=== PATIENT | female | born 1945 | race Caucasian/White ===

== ENCOUNTER 2017-04-28 12:45 | Inpatient (IN) | payer MEDICARE ==
--- NOTE | 2017-04-28 14:21 | RAD ---
HISTORY: Fever COMPARISONS: November 18, 2016 VIEWS: 1: frontal portable view of the chest at 2:05 PM FINDINGS: LINES AND TUBES: None. CARDIOMEDIASTINAL SILHOUETTE: The cardiac silhouette is enlarged. The cardiomediastinal silhouette is otherwise normal for portable technique. PLEURA: The costophrenic angles are sharp. No pleural abnormalities are noted. LUNG PARENCHYMA: The lungs are clear. ABDOMEN: The upper abdomen is clear. There is no subphrenic gas. BONES AND SOFT TISSUES: No bone or soft tissue abnormalities are noted. IMPRESSION: CARDIOMEGALY. NO ACTIVE CARDIOPULMONARY DISEASE.
[2017-04-28 14:24] LABS: Urine Bilirubin Negative (Negative); Urine Glucose Negative (Negative); Urine Nitrite Negative (Negative)
[2017-04-28] MEDS ORDERED: Ibuprofen TAB* 600 MG PO ONE (15:20)
[2017-04-28 15:21] LABS: Hematocrit 42 % (35-47); Mean Corpuscular HGB Conc 33 g/dl (31-36); Mean Corpuscular Hemoglobin 30 pg (27-31); Mean Corpuscular Volume 91 fL (80-97); Mean Platelet Volume 10 um3 (7.4-10.4); Red Blood Count 4.62 10^6/ul (4.0-5.4); Red Cell Distribution Width 13 % (10.5-15); White Blood Count 24.8 10^3/ul (3.5-10.8)
[2017-04-28 15:22] LABS: Comments Flag Yes
[2017-04-28 15:36] LABS: Albumin 4.1 g/dL (3.2-5.2); BUN/Creatinine Ratio 12.1 (8-20); Calcium 9.4 mg/dL (8.6-10.3); EGFR African American 112.9 (>60); EGFR Non-African American 87.8 (>60); Globulin 3.5 g/dL (2-4); Potassium 3.6 mmol/L (3.5-5.0); Total Bilirubin 1.4 mg/dL (0.2-1.0); Total Protein 7.6 g/dL (6.4-8.9)
[2017-04-28] MEDS ORDERED: metroNIDAZOLE IV 500 MG/100ML* 500 MG/100 ML BAG IVPB ONE (15:43)
[2017-04-28] MEDS ORDERED: Ciprofloxacin 400MG IVPREMIX(* 400 MG/200 ML BAG IVPB ONE (15:43)
[2017-04-28] MEDS ORDERED: Vancomycin(*) 1,500 MG in NS 0.9% 250 ML* 250 ML IVPB ONE (15:43)
[2017-04-28] MEDS ORDERED: Ondansetron INJ* 2 MG/ML VIAL IV ONE (15:44)
[2017-04-28] MEDS: NS 0.9% 1000 ML* 3,000 ML IV ONE ×2 (16:03→17:14)
[2017-04-28] MEDS ORDERED: Iodixanol* (CONTRAST) 320 MG/ML 100 ML SDV IV ONE (16:09)
[2017-04-28] MEDS ORDERED: HYDROcodone/ACETAMIN 5-325 MG* 1 TAB PO ONE (16:21)
[2017-04-28] MEDS ORDERED: LORazepam INJ* 2 MG/ML 1 ML VIAL IV PUSH ONE (17:18)
[2017-04-28] MEDS ORDERED: Albuterol HFA INHALER* 8 gm MDI INH PRN (18:26)
[2017-04-28] MEDS ORDERED: Dextrose 50% Syringe 50 ML* 25 GM/50 ML SYRINGE IV PUSH PRN (18:27)
[2017-04-28] MEDS ORDERED: NS 0.9% 1000 ML* 1,000 ML IV SCH (18:45)
--- NOTE | 2017-04-28 19:32 | RAD ---
HISTORY: Right leg erythema TECHNIQUE: Multiple transverse and longitudinal ultrasound images were obtained of the veins of the right lower extremity using grayscale, color Doppler, and spectral Doppler imaging with and without compression and with augmentation. FINDINGS: VEINS: The common femoral vein, deep femoral vein, femoral vein and popliteal vein are compressible throughout their course, with normal flow on color Doppler imaging and normal response to augmentation on spectral Doppler imaging. SOFT TISSUES: Grossly normal. No large popliteal fossa cyst was identified. IMPRESSION: No sonographic evidence of deep vein thrombosis.
--- NOTE | 2017-04-28 19:32 | RAD ---
INDICATION: Hypoxemia, cough, sepsis, fever. COMPARISON: None. TECHNIQUE: Multidetector CT angiography images of the chest, abdomen and pelvis were obtained from the lung apices to the ischial tuberosities following the injection of 98 mL of Visipaque 320 intravenous contrast. The patient received oral contrast as well prior to imaging. The examination, both the CTA chest PE protocol and contrast enhanced CT of the abdomen and pelvis are limited by respiratory motion artifact. ANGIOGRAPHIC FINDINGS: Respiratory motion artifact limits evaluation of the pulmonary arteries beyond the proximal lobar branches. There are questionable nonocclusive filling defects in the lower segmental branches at the bilateral lower lobes (axial image 57 and axial image 58 of 96). There is mild calcified atherosclerosis of the coronary arteries, arch of the aorta and thoracic aorta. Calcified atherosclerosis extends into the infrarenal abdominal aorta and the common iliac arteries. There is exuberant eccentric calcification along the anterior margin of the abdominal aorta extending into the origin of the celiac trunk. The lesser extent there is calcified atherosclerosis in the proximal most portions of the superior mesenteric artery and bilateral renal arteries. The timing of the contrast bolus is inadequate to determine the luminal patency of the previously described arteries. NON-ANGIOGRAPHIC FINDINGS: CHEST: The lungs exhibit mild diffuse groundglass opacification. There is no definite focal or lobar consolidation. There is no large pleural effusion. There is no mediastinal or hilar lymphadenopathy. The heart and major vascular structures are grossly normal in appearance. ABDOMEN \T\ PELVIS: The liver, spleen, pancreas and adrenal glands are grossly normal in appearance. The gallbladder is normal. The kidneys are normal in appearance without focal mass, calcification or signs of hydronephrosis. The oral contrast has progressed as far as the rectosigmoid colon. The small and large bowel are not distended. The partially contrast-filled appendix is noted in the right lower quadrant (image 56 of 90). Air-fluid levels are noted in the otherwise normal-appearing transverse colon. There is no gross retroperitoneal or mesenteric lymphadenopathy. At the left of midline pelvis there is an asymmetric soft tissue density that measures approximately 6.3 x 5 cm in the axial plane. There is questionable identification of the uterus. Degenerative changes of the thoracic and lumbar spine include loss of intervertebral disc height, marginal osteophyte formation and vacuum disc phenomenon at L5/S1. A right hip ORIF device appears to be appropriately position.There are no sinister bone lesions. IMPRESSION: 1. This is a highly limited pulmonary embolism examination due to respiratory motion artifact. There appears to be nonobstructing thrombus in the bilateral lower lobe segmental arterial branches. 2. Mild diffuse groundglass opacification of the lungs could be seen in the setting of congestive heart failure. 3. There is no definite focal inflammatory change of the gastrointestinal tract but air-fluid levels are noted in the transverse colon which could be seen in the setting of diarrheal disease. #4 at the left of midline pelvis there is a 5 x 6 cm low-attenuation mass potentially originating at the left ovary, left adnexa or potentially the left uterus. Further characterization can be made with nonemergent pelvic ultrasound. 4. There are additional chronic, degenerative and iatrogenic findings described in the body the report that are unlikely to be directly related to the patient's current presentation..
[2017-04-28] MEDS ORDERED: Vancomycin per Pharmacy* NOTE FOLLOW UP PRN (19:54)
[2017-04-28] MEDS: Insulin LISPRO* 1 UNITS UNIT SUBCUT SCH (19:55)
[2017-04-28] MEDS ORDERED: Enoxaparin(*) 40 MG/0.4 ML SYR SUBCUT SCH (20:00)
[2017-04-28] MEDS: Donepezil TAB* 5 MG PO SCH (20:45)
[2017-04-28] MEDS: Acetaminophen TAB* 325 MG PO SCH (20:45)
[2017-04-28] MEDS: Enoxaparin(*) 100 MG/ML SYR SUBCUT SCH (20:46)
--- NOTE | 2017-04-28 22:25 | HP ---
CC: Dr. Keating * HISTORY AND PHYSICAL: DATE OF ADMISSION: 04/28/17 PRIMARY CARE PHYSICIAN: Dr. Keating. CHIEF COMPLAINT: Fever, worsening confusion. HISTORY OF PRESENT ILLNESS: Ms. Mcnair is a 71-year-old female with past medical history of hypertension, CAD, status post stenting x2, advanced dementia , diabetes, and osteoporosis who presents to the hospital from [facility] after she was found to have fever, nausea, vomiting, and altered mental status this morning. History obtained mostly from the patient's daughter and from documentation from [facility]. Apparently, the patient had been in the usual state of health lately although has had progressive dementia over the past few years. This morning, was noted to have nausea, vomiting, followed by dry heaves. The patient was found to have fever around 100, was also seemed to be more confused than usual. She always has memory problems from her dementia; however this morning, she had difficulty following commands, which is worse than her baseline. The patient received some antipyretics and a few hours later , her fever had increased. At this time, Dr. Keating, her PCP, was notified and she was sent to the hospital for further evaluation. In the emergency department, the patient was found to have a significant leukocytosis as well as a fever initially of 103.6. There is suspicion of possible underlying infection and the patient was placed on broad-spectrum antibiotics and hospitalist service was consulted to evaluate the patient for admission. PAST MEDICAL HISTORY: Hypertension, CAD, status post stenting x2, dementia, diabetes, osteoporosis. PAST SURGICAL HISTORY: PCI x2 to the LAD and left circumflex, lumbar surgery in 2009, right hip sukhjinder placement after a fracture in 2011. ALLERGIES: The patient has allergy to PENICILLIN, which causes a rash. FAMILY HISTORY: Significant for her father with lung cancer, mother at 72 of unknown causes. SOCIAL HISTORY: The patient is a former [id number] smoker. No recent alcohol use. No illicit drug use. REVIEW OF SYSTEMS: Unable to obtain. PHYSICAL EXAMINATION GENERAL: The patient is an elderly female, lying in bed, in no apparent distress. VITAL SIGNS: On admission, temperature of 103.6, heart rate of 75, respiratory rate of 17, O2 saturation 95% on room air; however, subsequently became hypoxic requiring supplemental oxygen, blood pressure of 124/44. HEENT: Head: Normocephalic, atraumatic. Eyes: Pupils equal, round, and reactive to light and accommodation. Anicteric sclerae. ENT: Moist mucous membranes. NECK: No cervical adenopathy. LUNGS: With some mild bibasilar rales, otherwise clear to auscultation bilaterally. No wheezes or rhonchi. CARDIOVASCULAR: Regular rate and rhythm. S1 and S2 present. No murmurs, gallops, or rubs. ABDOMEN: Soft, nondistended, obese. The patient reports some tenderness to palpation in the right lower quadrant. No rebound or guarding. Bowel sounds are positive. EXTREMITIES: No cyanosis, clubbing, or edema. SKIN: Right lower extremity is warm, not erythematous, was not tender on my evaluation; however, apparently for Dr. Nuñez, she had some tenderness that was evoked with palpation. NEUROLOGIC: The patient is alert, oriented to self only. No focal neurological deficits. LABORATORY DATA AND DIAGNOSTICS: White blood cell count is 24.8, hemoglobin of 14, hematocrit of 42, platelets of 236, left shift of 88.6% neutrophils. INR of 0.94. Sodium of 135, potassium of 3.6, chloride of 98, carbon dioxide of 26, BUN of 8, creatinine of 0.6, glucose of 161, lactic acid of 3.3. Total bilirubin of 1.4. Remainder of LFTs within normal limits. UA negative. Chest x -ray, personally reviewed, shows cardiomegaly, but no focal consolidations. CTA chest, abdomen, and pelvis has been done and is pending a read. The patient also has lower extremity Dopplers ordered. ASSESSMENT AND PLAN: Systemic inflammatory response syndrome criteria with unclear etiology of infection at this time in a 71-year-old female with a past medical history of hypertension, coronary artery disease, dementia, diabetes, and osteoporosis. 1. Systemic inflammatory response syndrome. The patient has a significant leukocytosis of 24.8 along with an elevated lactic acid of 3.3. She has been adequately fluid resuscitated in the emergency department and repeat lactic acid is pending. She has received broad-spectrum antibiotics in the emergency department, which I will continue for now. Cellulitis is possible as RLE was warm but do not appreciate any erythema. I am awaiting a read of her CT chest, abdomen, and pelvis. We will order a flu swab, she could potentially have a viral infection as the cause for these spiking fevers. Fevers alone could be driving her altered mental status as well. As noted above, UA is negative. She has blood cultures pending at this time. Chest x-ray is fairly unremarkable. CTA will evaluate for possible pulmonary embolism and lower extremity Dopplers look for deep venous thrombosis. 2. Hypertension. The patient's blood pressure seems stable to elevated. We will continue her home amlodipine and Bystolic. We will hold her losartan, hydrochlorothiazide for now. 3. Diabetes. Hold her home glipizide. We will write for Humalog insulin sliding scale and POC glucose a.c. and h.s. 4. Dementia. Continue donepezil and Namenda. Hold her gabapentin for the time being. The patient will need close monitoring overnight as I suspect she may have some worsening delirium. 5. Coronary artery disease. Continue home aspirin. The patient is not on a statin at this time. Continue beta-gemma. 6. DVT prophylaxis. Lovenox subcutaneous. 7. Code status. The patient is a DNR. This is confirmed with the patient's daughter. TIME SPENT: Total time spent on this admission was 45 minutes with over half the time spent [id number] with the patient in counseling and coordinating care. [id number]/[facility] #: [id number] MELISSA
[2017-04-29] MEDS: metroNIDAZOLE IV 500 MG/100ML* 500 MG/100 ML BAG IVPB SCH ×2 (00:47→10:35)
[2017-04-29] MEDS: Vancomycin(*) 1,000 MG in NS 0.9% 250 ML* 250 ML IVPB SCH ×2 (04:10→12:20)
[2017-04-29] MEDS ORDERED: Ciprofloxacin 400MG IVPREMIX(* 400 MG/200 ML BAG IVPB SCH (06:00)
[2017-04-29 06:07] LABS: Hematocrit 37 % (35-47); Hemoglobin 12.2 g/dl (12.0-16.0); Mean Corpuscular HGB Conc 33 g/dl (31-36); Mean Corpuscular Hemoglobin 30 pg (27-31); Mean Corpuscular Volume 91 fL (80-97); Mean Platelet Volume 10 um3 (7.4-10.4); Red Cell Distribution Width 14 % (10.5-15)
[2017-04-29 06:22] LABS: Albumin 3.4 g/dL (3.2-5.2); BUN/Creatinine Ratio 15.8 (8-20); Calcium 8.2 mg/dL (8.6-10.3); EGFR African American 133.7 (>60); Globulin 2.6 g/dL (2-4); Total Bilirubin 0.8 mg/dL (0.2-1.0)
[2017-04-29] MEDS: Insulin LISPRO* 1 UNITS UNIT SUBCUT SCH ×3 (08:16→17:25)
[2017-04-29] MEDS: Enoxaparin(*) 100 MG/ML SYR SUBCUT SCH ×2 (08:17→20:48)
[2017-04-29] MEDS: Memantine XR CAP* 28 MG CAP.XR PO SCH (08:55)
[2017-04-29] MEDS: Citalopram TAB* 20 MG PO SCH (08:56)
[2017-04-29] MEDS: amLODIPine TAB* 5 MG PO SCH (08:56)
[2017-04-29] MEDS: Acetaminophen TAB* 325 MG PO SCH (08:56)
[2017-04-29] MEDS: CMCS Nebivolol TAB (NF) 2.5 MG TAB PO SCH (08:56)
[2017-04-29] MEDS: Aspirin EC Low Dose* 81 MG TAB.EC PO SCH (08:56)
--- NOTE | 2017-04-29 10:26 | ECHO ---
Patient: KO ARAUZ [facility] Rec#: [id number] : 1945 Date: 04/29/2017 Age: 71y Height: 154.94 cm / 61.0 in Weight: 86.18 kg / 189.9 lbs Sex: F BSA: 1.85 Room#: 405 Admit Date#: 04/28/2017 Type: Inpatient Referring: MIKE WILLIAMSON MD Reading: Karissa Carrizales MD Contract Technical Writer: Jessica Frederick RDCS CC: Rosina Keating MD Transthoracic Echocardiogram Indication: Pulmonary Emboli BP: 129/45 HR: 65 Rhythm: NSR Findings History: HTN, CAD s/p stents x2, advanced dementia, DM, osteoporosis, former smoker, and DYLON. Technical Comments: The study quality is fair. The study is technically limited due to patient body habitus. The study was technically limited due to the patient's inability to lay in the left lateral decubitus position. Patient was in reclined chair during the study. Completed at 0830. Left Ventricle: The left ventricular chamber size is normal. Mild concentric left ventricular hypertrophy is observed. Global left ventricular wall motion and contractility are within normal limits. There is normal left ventricular systolic function. The estimated ejection fraction is 60-65%. Normal left ventricular diastolic filling is observed. Left Atrium: The left atrium is mild to moderately dilated. Right Ventricle: Moderator Band present. The right ventricular cavity size is normal. The right ventricular global systolic function is normal. Right Atrium: The right atrium is mild to moderately dilated. Aortic Valve: The aortic valve is trileaflet. The aortic valve leaflets are mildly thickened. There is a trace of aortic regurgitation. There is no evidence of aortic stenosis. Mitral Valve: The mitral valve leaflets are mildly thickened. There is trace to mild mitral regurgitation. The mitral regurgitant jet is posteriorly directed. There is no evidence of mitral stenosis. Tricuspid Valve: The tricuspid valve leaflets are normal. There is trace to mild tricuspid regurgitation. The right ventricular systolic pressure is estimated at 31 mmHg. There is evidence that pulmonary hypertension may be underestimated. There is no tricuspid stenosis. Pulmonic Valve: The pulmonic valve appears normal. There is a trace pulmonic regurgitation. There is no pulmonic stenosis. Pericardium: A trivial pericardial effusion is visualized. Aorta: There is no dilatation of the ascending aorta. There is no dilatation of the aortic arch. The aortic root is normal in size. Pulmonary Artery: The main pulmonary artery is not well visualized. Venous: The inferior vena cava is dilated. There is a greater than 50% respiratory change in the inferior vena cava dimension. Conclusions Technically difficult study but adequate for evaluation. Mild concentric left ventricular hypertrophy is observed. Global left ventricular wall motion and contractility are within normal limits. The estimated ejection fraction is 60-65%. The right ventricular global systolic function is normal. Mild to moderately dilated atria, left and right. The aortic valve leaflets are mildly thickened with good function. There is trace to mild mitral regurgitation. There is trace to mild tricuspid regurgitation. The right ventricular systolic pressure is estimated at 31 mmHg. No prior echo to compare. Measurements Name Value Normal Range RVIDd (AP) 2D 2.7 cm (0.9 - 2.6) RVDdMajor (2D) 3.4 cm (2.2 - 4.4) RAd ISD 4CH 5.7 cm (3.4 - 4.9) RA (A4C)W 4 cm (2.9 - 4.6) IVSd (2D) 1.2 cm (0.6 - 1) LVPWd (2D) 1.2 cm (0.6 - 1) LVIDd (2D) 4.3 cm (3.6 - 5.4) LVIDs (2D) 2.4 cm - LV FS (2D) 43.5 % (25 - 45) Aortic Annulus 1.4 cm (1.4 - 2.6) Ao root diameter (2D) 2.8 cm (2.1 - 3.5) Ascending Ao 2.9 cm (2.1 - 3.4) Aortic arch 2 cm (1.8 - 3.4) LA dimension (AP) 2D 3.7 cm (2.3 - 3.8) LAd ISD 4CH 6.6 cm (2.9 - 5.3) LA ISD 4CH W 3.9 cm (2.5 - 4.5) Name Value Normal Range LA ESV SP 4CH (A/L) 56 ml - LA ESV SP 2CH (A/L) 56 ml - LA ESV BP (A/L) 60 ml - LA ESV BP (A/L) index 33 ml/m2 - LA ESV SP 4CH (MOD) 51 ml - LA ESV SP 2CH (MOD) 52 ml - Name Value Normal Range MV E-wave Vmax 0.91 m/sec - MV deceleration time 226.9 msec - MV A-wave Vmax 0.59 m/sec - MV E:A ratio 1.54 ratio - LV septal e' Vmax 0.06 m/sec - LV lateral e' Vmax 0.08 m/sec - LV E:e' septal ratio 15.17 ratio - LV E:e' lateral ratio 11.38 ratio - Name Value Normal Range AV Vmax 1.57 m/sec - AV VTI 29.8 cm - AV peak gradient 9.88 mmHg - AV mean gradient 4.95 mmHg - LVOT Vmax 0.78 m/sec - LVOT VTI 18.37 cm - LVOT peak gradient 2.44 mmHg - LVOT mean gradient 1.23 mmHg - TAMMIE Vmax 0.68 m/sec - Name Value Normal Range TR Vmax 2 m/sec - TR peak gradient 16 mmHg - RAP 15 mmHg - RVSP 31 mmHg - IVC diameter 2.4 cm - Name Value Normal Range PV Vmax 0.72 m/sec - PV peak gradient 2.13 mmHg -
[2017-04-29] MEDS ORDERED: Potassium Chlor TAB* 20 MEQ TAB.ER PO ONE (11:41)
--- NOTE | 2017-04-29 11:59 | PN ---
Subjective Date of Service: 04/29/17 Interval History: CTA C/A/P last night showed ?PE although study was highly limited due to movement. Patient was started on therapeutic lovenox. Today patient seems to be in good spirits, daughter was here earlier, not currently at the bedside. Patient remains confused and impulsive, acting out at times. Patient denies any pain or discomfort at this time. Denies chest pain, abdominal pain, leg pain. Family History: Unchanged from Admission Social History: Unchanged from Admission Past Medical History: Unchanged from Admission Objective Active Medications: Acetaminophen (Tylenol Tab*) 650 mg PO TID GINGER Albuterol (Ventolin Hfa Inhaler*) 2 puff INH Q4H PRN Amlodipine Besylate (Norvasc Tab*) 10 mg PO DAILY GINGER Aspirin (Aspirin Ec Low Dose*) 81 mg PO DAILY GINGER Citalopram Hydrobromide (Celexa Tab*) 20 mg PO DAILY GINGER Dextrose (D50w Syringe 50 Ml*) 12.5 gm IV PUSH .FOR FS < 60 - SS PRN Donepezil HCl (Aricept Tab*) 10 mg PO BEDTIME GINGER Enoxaparin Sodium (Lovenox(*)) 90 mg SUBCUT Q12H GINGER Ciprofloxacin/Dextrose (Cipro 400 Mg Ivpremix(*)) 400 mg in 200 mls @ 200 mls/ hr IVPB Q12H GINGER Metronidazole/Sodium Chloride (Flagyl 500 Mg Ivpb*) 500 mg in 100 mls @ 100 mls /hr IVPB Q8H GINGER Vancomycin HCl 1,000 mg/ (Sodium Chloride) 250 mls @ 166.667 mls/hr IVPB Q8H GINGER Ibuprofen (Motrin Tab*) 400 mg PO BID PRN Insulin Human Lispro (Humalog*) 0 - 10 units SUBCUT AC GINGER Memantine (Namenda Xr Cap*) 28 mg PO DAILY GINGER Nebivolol (Bystolic Tab (Nf)) 10 mg PO DAILY [facility] Pharmacy Consult (Vancomycin Per Pharmacy*) 1 note FOLLOW UP . PRN Pharmacy Profile Note (Vancomycin Trough Check) 1 note FOLLOW UP 1130 ONE Potassium Chloride (Klor-Con Liquid*) 40 meq PO DAILY [facility] Vital Signs 04/28/17 04/28/17 04/28/17 18:01 18:45 19:00 Temperature 100.1 F Pulse Rate 69 66 Respiratory 22 20 Rate Blood Pressure (mmHg) O2 Sat by Pulse 90 92 Oximetry 04/28/17 04/28/17 04/28/17 19:29 20:00 23:53 Temperature 97.9 F 98.6 F Pulse Rate 63 61 Respiratory 20 16 Rate Blood Pressure 135/56 121/53 (mmHg) O2 Sat by Pulse 95 95 92 Oximetry 04/29/17 04/29/17 04/29/17 04:12 07:41 08:00 Temperature 98.2 F 98.1 F Pulse Rate 64 68 Respiratory 16 16 20 Rate Blood Pressure 129/45 148/68 (mmHg) O2 Sat by Pulse 96 93 92 Oximetry Oxygen Devices in Use Now: Nasal Cannula - 3.5 L Appearance: Elderly, F, laying in chair in NAD Eyes: No Scleral Icterus Ears/Nose/Mouth/Throat: Mucous Membranes Moist Neck: NL Appearance and Movements; NL JVP Respiratory: Symmetrical Chest Expansion and Respiratory Effort, Clear to Auscultation Cardiovascular: NL Sounds; No Murmurs; No JVD, RRR Abdominal: NL Sounds; No Tenderness; No Distention Lymphatic: No Cervical Adenopathy Extremities: No Edema Skin: - - No LE erythema or warmth, non-tender Neurological: - - Alert, oriented to self only, cannot tell me where she is, impulsive Result Diagrams: 04/29/17 05:31 04/29/17 05:31 Microbiology and Other Data: Microbiology 04/28/17 23:17 Nasal Screen MRSA (PCR)(FIFI) - Final Nasal Mrsa Negative 04/28/17 23:17 Influenza Types A,B Antigen (FIFI) - Final Nasal Specimen received for Influenza A/B Molecular testing Assess/Plan/Problems-Billing Assessment: SIRS, acute hypoxic respiratory failure in a 71 yo F with hx of advanced dementia, HTN, CAD, DM, osteoporosis - Patient Problems (1) SIRS (systemic inflammatory response syndrome) Current Visit: Yes Comment: Possible underlying infection, etiology unclear at this time. No clear evidence of PNA, UTI, cellulitis. CT scan not showing any clear infectious etiologies. ?viral. Procalcitonin is minimally elevated. Have asked Dr. Remy to evalute the patient and help guide ?need for continued ABx. (2) Acute respiratory failure with hypoxia Current Visit: Yes Comment: Questionable PE noted on CTA although imaging was poor due to movement. Started on therapeutic Lovenox last night. Echo without any R sided strain, D-dimer normal which makes PE much less likely but at this time I do not have another clear etiology for hypoxia and I'm not sure patient would be any more cooperative with additional testing (VQ, repeat CTA). Continue AC for the time being. (3) HTN (hypertension) Current Visit: Yes Comment: Continue Amlodipine and Bystolic for now (4) Diabetes Current Visit: Yes Comment: HISS. Holding home Glipizide. (5) Dementia Current Visit: Yes Comment: Continue Namenda and Donepezil (6) CAD (coronary artery disease) Current Visit: Yes Comment: Continue ASA and beta-gemma (7) DVT prophylaxis Current Visit: Yes Comment: Lovenox Status and Disposition: Inpatient for further infectious/hypoxia work-up
[2017-04-29] MEDS: Potassium Chloride LIQUID* 20 MEQ PACKET PO SCH (12:20)
--- NOTE | 2017-04-29 16:58 | CONS ---
CONSULTATION REPORT: DATE OF CONSULT: 04/29/17 REQUESTING PHYSICIAN: Dr. Oritz. CONSULTING SERVICE: Infectious Disease. REASON FOR CONSULT: Sepsis, encephalopathy. IMPRESSION: 1. Sepsis and encephalopathy, both present on admission and improving. 2. Fever, leukocytosis, improving. I suspect this is all due to an anterior right leg cellulitis w hich she has had some erythema, warmth, tenderness which is slowly improving. 3. Dementia. 4. Diabetes. 5. PENICILLIN allergy. 6. Coronary artery disease. 7. Right hip open reduction and internal fixation which has been asymptomatic. RECOMMENDATIONS: Start vancomycin, Cipro and Flagyl. Start Ancef 1 g IV every 8 hours and follow h er leg and fever. May take a few more days for her to really be over this. HISTORY OF PRESENT ILLNESS: This is a 71-year-old woman with diabetes, dementia, cardiac disease, a dmitted with change in mental status and fever. She cannot provide much of the history because of h er baseline dementia, which is obtained instead from discussion with the patient's daughter, review of the medical records, and with discussion with Dr. Ortiz. Yesterday, the daughter was contacted by her nursing facility with fever and being lethargic and not acting her usual and she was sent to the ER. She had a temperature of 103 in the longterm. She had a CT chest, abdomen and pelvis done here that showed possible pulmonary embolus, otherwise negative. A followup D-dimer was appare ntly negative. Her white count on admission was 24,000, it is down to 13,000 today. She has been o n vanco, Cipro and Flagyl overnight. Her lactate was 2.3 on admission. BNP was 249. Urinalysis to tally negative, influenza PCR negative. INR was 1. Blood cultures were sent and are pending. Her daughter noticed the redness on her leg yesterday and it is a little bit better today. PAST MEDICAL HISTORY: 1. Coronary artery disease with a history of PCI. 2. Hypertension. 3. Dementia. 4. Diabetes. 5. Osteoporosis. 6. Right hip fracture, status post open reduction and internal fixation. 7. Lumbar spine surgery, 2009. MEDICATIONS: 1. Tylenol. 2. Albuterol. 3. Aspirin. 4. Celexa. 5. Cipro. 6. Enoxaparin. 7. Donepezil. 8. Ibuprofen p.r.n. 9. Lorazepam p.r.n. 10. Memantine. 11. Vancomycin. 12. Flagyl 500 mg IV every 8 hours. ALLERGIES: PENICILLIN caused rash. FAMILY HISTORY: Parents are . SOCIAL HISTORY: She lives in a nursing facility. No travel. No sick contacts. REVIEW OF SYSTEMS: All negative to a 14-point review of systems except as noted above. PHYSICAL EXAMINATION: Vital Signs: Temperature 36.7, heart rate 70, respiratory rate 16, blood pres sure 150/70, O2 sat 93% on 2 L. General: She is awake and not in distress. Neurologic: She is or iented x1. Follows all commands. Moves all of her extremities, answers all questions. HEENT: Th ere is no conjunctival hemorrhage. Oropharynx without lesions. Neck: Supple without nuchal rigidi ty. Lymph nodes: There is no cervical, supraclavicular, inguinal, axillary or epitrochlear lymphade nopathy. Heart: Regular rate and rhythm without murmurs, rubs or gallops. Lungs: Clear to auscul tation bilaterally. Abdomen: Soft, nontender, nondistended. There are bowel sounds present. Skin : The anterior right leg from the thigh down to the mid lower leg is mildly warm and erythematous w ithout crepitus or fluctuance. No other rash. Musculoskeletal: There is no joint synovitis or spi ne tenderness to palpation. LABORATORY DATA: Creatinine 0.5, ALT 20. White blood cell count 13, hemoglobin 12, platelets 165,0 00. Please see the impressions and recommendation outlined above, which I discussed with Dr. Ortiz. Thank you for asking me to see Ms. Mcnair in consultation. [id number]/[facility] #: [id number]
[2017-04-29] MEDS: Donepezil TAB* 5 MG PO SCH (20:48)
[2017-04-29] MEDS: Acetaminophen TAB* 325 MG PO PRN (20:48)
[2017-04-29] MEDS: ceFAZolin 1 GM VIAL(*) 1 GM in NS 0.9% 50 ML* 50 ML IVPB SCH (21:18)
[2017-04-30] MEDS ORDERED: Haloperidol INJ IV/IM* 5 MG/ML AMP IM ONE (02:20)
[2017-04-30] MEDS: ceFAZolin 1 GM VIAL(*) 1 GM in NS 0.9% 50 ML* 50 ML IVPB SCH ×3 (06:03→21:17)
[2017-04-30 06:40] LABS: Hematocrit 41 % (35-47); Hemoglobin 13.6 g/dl (12.0-16.0); Mean Corpuscular HGB Conc 33 g/dl (31-36); Mean Corpuscular Hemoglobin 31 pg (27-31); Mean Corpuscular Volume 92 fL (80-97); Mean Platelet Volume 10 um3 (7.4-10.4); Red Blood Count 4.46 10^6/ul (4.0-5.4); Red Cell Distribution Width 14 % (10.5-15)
[2017-04-30 06:47] LABS: BUN/Creatinine Ratio 10.7 (8-20); Calcium 8.7 mg/dL (8.6-10.3); EGFR African American 136.5 (>60); EGFR Non-African American 106.1 (>60); Potassium 3.3 mmol/L (3.5-5.0)
[2017-04-30] MEDS: Aspirin EC Low Dose* 81 MG TAB.EC PO SCH (08:46)
[2017-04-30] MEDS: Citalopram TAB* 20 MG PO SCH (08:46)
[2017-04-30] MEDS: Memantine XR CAP* 28 MG CAP.XR PO SCH (08:47)
[2017-04-30] MEDS: Potassium Chloride LIQUID* 20 MEQ PACKET PO SCH (08:47)
[2017-04-30] MEDS: amLODIPine TAB* 5 MG PO SCH (08:48)
[2017-04-30] MEDS: CMCS Nebivolol TAB (NF) 2.5 MG TAB PO SCH (08:48)
--- NOTE | 2017-04-30 08:50 | PN ---
Subjective Date of Service: 04/30/17 Interval History: Patient seen this morning. Had eventful night, agitated most of the night, did not sleep. This morning has little complaints other than "bored". Denies SOB, leg pain, chest pain. Tangential in her speech. Family History: Unchanged from Admission Social History: Unchanged from Admission Past Medical History: Unchanged from Admission Objective Active Medications: Acetaminophen (Tylenol Tab*) 650 mg PO Q6H PRN Albuterol (Ventolin Hfa Inhaler*) 2 puff INH Q4H PRN Amlodipine Besylate (Norvasc Tab*) 10 mg PO DAILY GINGER Aspirin (Aspirin Ec Low Dose*) 81 mg PO DAILY GINGER Citalopram Hydrobromide (Celexa Tab*) 20 mg PO DAILY GINGER Dextrose (D50w Syringe 50 Ml*) 12.5 gm IV PUSH .FOR FS < 60 - SS PRN Donepezil HCl (Aricept Tab*) 10 mg PO BEDTIME GINGER Enoxaparin Sodium (Lovenox(*)) 90 mg SUBCUT Q12H GINGER Cefazolin Sodium 1 gm/ Sodium (Chloride) 50 mls @ 200 mls/hr IVPB Q8H GINGER Ibuprofen (Motrin Tab*) 400 mg PO BID PRN Insulin Human Lispro (Humalog*) 0 - 10 units SUBCUT AC GINGER Memantine (Namenda Xr Cap*) 28 mg PO DAILY GINGER Nebivolol (Bystolic Tab (Nf)) 10 mg PO DAILY GINGER Potassium Chloride (Klor-Con Liquid*) 40 meq PO DAILY [facility] Vital Signs 04/29/17 04/29/17 04/30/17 15:39 19:27 00:04 Temperature 97.8 F 98.1 F Pulse Rate 60 69 Respiratory 16 16 Rate Blood Pressure 138/60 143/97 (mmHg) O2 Sat by Pulse 94 92 93 Oximetry 04/30/17 04/30/17 00:08 00:39 Temperature 97.7 F Pulse Rate 76 Respiratory 18 20 Rate Blood Pressure 146/63 (mmHg) O2 Sat by Pulse 96 Oximetry Oxygen Devices in Use Now: Nasal Cannula - 3.5 L Appearance: Elderly, F, laying in bed in NAD Eyes: No Scleral Icterus Ears/Nose/Mouth/Throat: - - Dry MM Neck: NL Appearance and Movements; NL JVP Respiratory: Symmetrical Chest Expansion and Respiratory Effort, Clear to Auscultation Cardiovascular: NL Sounds; No Murmurs; No JVD, RRR Abdominal: NL Sounds; No Tenderness; No Distention Lymphatic: No Cervical Adenopathy Extremities: No Edema, - Skin: - - Faint RLE erythema, warmth, non-tender Neurological: - - Alert, oriented to self only Result Diagrams: 04/30/17 06:05 04/30/17 06:05 Assess/Plan/Problems-Billing Assessment: Cellulitis, acute hypoxic respiratory failure in a 71 yo F with hx of advanced dementia, HTN, CAD, DM, osteoporosis - Patient Problems (1) Cellulitis Current Visit: Yes Comment: Appreciate Dr. Remy's assistance, he feels patient likely has RLE cellulitis. WBC stable today, still slightly elevated. No further fevers. For now continue IV Ancef. Monitor blood cultures. Will repeat CXR. (2) Acute respiratory failure with hypoxia Current Visit: Yes Comment: Questionable PE noted on CTA although imaging was poor due to movement. Started on therapeutic Lovenox last night. Echo without any R sided strain, D-dimer normal which makes PE much less likely but at this time I do not have another clear etiology for hypoxia (?mild ARDS from infection ) and I'm not sure patient would be any more cooperative with additional testing (VQ, repeat CTA). Continue AC for the time being. Will get repeat CXR to evaluate for ?PNA or fluid (3) HTN (hypertension) Current Visit: Yes Comment: Continue Amlodipine and Bystolic, will add back HCTZ (4) Diabetes Current Visit: Yes Comment: HISS. Holding home Glipizide. (5) Dementia Current Visit: Yes Comment: Continue Namenda and Donepezil (6) CAD (coronary artery disease) Current Visit: Yes Comment: Continue ASA and beta-gemma (7) DVT prophylaxis Current Visit: Yes Comment: Lovenox Status and Disposition: Inpatient for further infectious/hypoxia work-up
[2017-04-30] MEDS: Enoxaparin(*) 100 MG/ML SYR SUBCUT SCH ×2 (08:52→21:15)
[2017-04-30] MEDS: Insulin LISPRO* 1 UNITS UNIT SUBCUT SCH ×3 (08:52→18:00)
[2017-04-30] MEDS: Hydrochlorothiazide TAB* 25 MG PO SCH (09:04)
--- NOTE | 2017-04-30 11:15 | RAD ---
Indication: Hypoxia, fever. Coronary artery disease with stents. Comparison: April 28, 2017 CT. Technique: Upright AP 0850 hours Report: Cardiomegaly, prominent ill-defined central pulmonary vasculature with perihilar opacities. Diffuse prominence of the mid to lower lung zone interstitial markings. Grossly clear pleural spaces. Negative for pneumothorax. IMPRESSION: Alveolar and interstitial pulmonary edema with interval worsening compared with the April 28, 2017 exam.
[2017-04-30] MEDS ORDERED: Vancomycin Trough Check NOTE FOLLOW UP ONE (11:30)
[2017-04-30] MEDS ORDERED: Furosemide IV* 10 MG/ML 2 ML VIAL (20 MG) IV ONE (12:38)
[2017-04-30] MEDS ORDERED: Saline NASAL SPRAY 0.65%* BTL BOTH NARES PRN (15:22)
[2017-04-30] MEDS ORDERED: QUEtiapine TAB* 100 MG PO PRN (15:23)
[2017-04-30] MEDS: Donepezil TAB* 5 MG PO SCH (21:13)
[2017-05-01] MEDS: ceFAZolin 1 GM VIAL(*) 1 GM in NS 0.9% 50 ML* 50 ML IVPB SCH ×3 (05:14→20:24)
[2017-05-01 06:32] LABS: Hematocrit 37 % (35-47); Hemoglobin 12.2 g/dl (12.0-16.0); Mean Corpuscular HGB Conc 33 g/dl (31-36); Mean Corpuscular Hemoglobin 31 pg (27-31); Mean Corpuscular Volume 93 fL (80-97); Mean Platelet Volume 10 um3 (7.4-10.4); Red Blood Count 3.99 10^6/ul (4.0-5.4); Red Cell Distribution Width 14 % (10.5-15); White Blood Count 7.9 10^3/ul (3.5-10.8)
[2017-05-01 06:48] LABS: BUN/Creatinine Ratio 14.5 (8-20); Calcium 8.4 mg/dL (8.6-10.3); EGFR African American 121.3 (>60); EGFR Non-African American 94.4 (>60); Potassium 2.8 mmol/L (3.5-5.0)
[2017-05-01] MEDS ORDERED: Furosemide IV* 10 MG/ML VIAL (40 MG) IV SLOW PU ONE (07:10)
--- NOTE | 2017-05-01 07:39 | PN ---
Subjective Date of Service: 05/01/17 Interval History: Patient seen this morning, was asleep, awoke easily but a little groggy and non- cooperative. Slept overnight after PO seroquel. Not agitated today. Reports some pain in her "legs and butt", specified L leg today. Denies SOB. Family History: Unchanged from Admission Social History: Unchanged from Admission Past Medical History: Unchanged from Admission Objective Active Medications: Acetaminophen (Tylenol Tab*) 650 mg PO Q6H PRN Albuterol (Ventolin Hfa Inhaler*) 2 puff INH Q4H PRN Amlodipine Besylate (Norvasc Tab*) 10 mg PO DAILY GINGER Aspirin (Aspirin Ec Low Dose*) 81 mg PO DAILY GINGER Citalopram Hydrobromide (Celexa Tab*) 20 mg PO DAILY GINGER Dextrose (D50w Syringe 50 Ml*) 12.5 gm IV PUSH .FOR FS < 60 - SS PRN Donepezil HCl (Aricept Tab*) 10 mg PO BEDTIME GINGER Enoxaparin Sodium (Lovenox(*)) 90 mg SUBCUT Q12H GINGER Hydrochlorothiazide (Hydrodiuril Tab*) 12.5 mg PO DAILY GINGER Cefazolin Sodium 1 gm/ Sodium (Chloride) 50 mls @ 200 mls/hr IVPB Q8H GINGER Ibuprofen (Motrin Tab*) 400 mg PO BID PRN Insulin Human Lispro (Humalog*) 0 - 10 units SUBCUT AC GINGER Memantine (Namenda Xr Cap*) 28 mg PO DAILY GINGER Nebivolol (Bystolic Tab (Nf)) 10 mg PO DAILY GINGER Potassium Chloride (Klor-Con Liquid*) 40 meq PO DAILY GINGER Potassium Chloride (Klor-Con Liquid*) 40 meq PO Q2H GINGER Quetiapine Fumarate (Seroquel Tab*) 100 mg PO BEDTIME PRN Sodium Chloride (Sodium Chloride 0.65% Nasal [place]*) 1 spray BOTH NARES Q4H PRN Vital Signs 04/30/17 04/30/17 04/30/17 08:00 08:39 15:30 Temperature 98.8 F 98.1 F Pulse Rate 78 69 Respiratory 22 26 22 Rate Blood Pressure 137/45 146/60 (mmHg) O2 Sat by Pulse 91 94 Oximetry 04/30/17 04/30/17 04/30/17 19:25 21:31 23:38 Temperature 99.4 F 99.7 F Pulse Rate 74 72 Respiratory 26 16 20 Rate Blood Pressure 149/66 125/53 (mmHg) O2 Sat by Pulse 92 81 94 Oximetry 05/01/17 03:56 Temperature 98.1 F Pulse Rate 63 Respiratory 22 Rate Blood Pressure 157/61 (mmHg) O2 Sat by Pulse 94 Oximetry Oxygen Devices in Use Now: Nasal Cannula - 5L Appearance: Elderly, F, laying in bed in NAD Eyes: No Scleral Icterus Ears/Nose/Mouth/Throat: - - Dry MM Neck: NL Appearance and Movements; NL JVP Respiratory: Symmetrical Chest Expansion and Respiratory Effort, - - Would not cooperate for full exam, anterior lungs appeared clear Cardiovascular: NL Sounds; No Murmurs; No JVD, RRR Abdominal: NL Sounds; No Tenderness; No Distention Lymphatic: No Cervical Adenopathy Extremities: No Edema Skin: - - Faint erythema on distal RLE, appears slightly improved, could not appreciate any asymmetrical warmth Neurological: - - Groggy from sleep, no focal deficits Result Diagrams: 05/01/17 05:54 05/01/17 05:54 Assess/Plan/Problems-Billing Assessment: Cellulitis, acute hypoxic respiratory failure in a 71 yo F with hx of advanced dementia, HTN, CAD, DM, osteoporosis - Patient Problems (1) Cellulitis Current Visit: Yes Comment: Appreciate Dr. Remy's assistance, he feels patient likely has RLE cellulitis. Leukocytosis resolved. No further fevers. For now continue IV Ancef. Monitor blood cultures. (2) Acute respiratory failure with hypoxia Current Visit: Yes Comment: Questionable PE noted on CTA although imaging was poor due to movement. Started on therapeutic Lovenox. Echo without any R sided strain, D-dimer normal which makes PE much less likely. May have some component of ARDS. As patient is less agitated now will repeat CTA, if no PE will stop AC. Repeat IV Lasix again today. (3) HTN (hypertension) Current Visit: Yes Comment: Continue Amlodipine, Bystolic, HCTZ (4) Diabetes Current Visit: Yes Comment: HISS. Holding home Glipizide. (5) Dementia Current Visit: Yes Comment: Continue Namenda and Donepezil (6) CAD (coronary artery disease) Current Visit: Yes Comment: Continue ASA and beta-gemma (7) DVT prophylaxis Current Visit: Yes Comment: Lovenox Status and Disposition: Inpatient for further infectious/hypoxia work-up
[2017-05-01] MEDS ORDERED: Iodixanol* (CONTRAST) 320 MG/ML 100 ML SDV IV ONE (08:04)
[2017-05-01] MEDS: Enoxaparin(*) 100 MG/ML SYR SUBCUT SCH ×2 (09:12→20:22)
[2017-05-01] MEDS: Memantine XR CAP* 28 MG CAP.XR PO SCH (09:12)
[2017-05-01] MEDS: Potassium Chloride LIQUID* 20 MEQ PACKET PO SCH ×3 (09:12→15:36)
[2017-05-01] MEDS: CMCS Nebivolol TAB (NF) 2.5 MG TAB PO SCH (09:13)
[2017-05-01] MEDS: Insulin LISPRO* 1 UNITS UNIT SUBCUT SCH ×3 (09:13→16:50)
[2017-05-01] MEDS: Citalopram TAB* 20 MG PO SCH (09:13)
[2017-05-01] MEDS: Aspirin EC Low Dose* 81 MG TAB.EC PO SCH (09:14)
[2017-05-01] MEDS: Hydrochlorothiazide TAB* 25 MG PO SCH (09:14)
[2017-05-01] MEDS: amLODIPine TAB* 5 MG PO SCH (09:14)
[2017-05-01] MEDS ORDERED: Potassium Chloride LIQUID* 20 MEQ PACKET PO ONE (15:30)
[2017-05-01] MEDS: Donepezil TAB* 5 MG PO SCH (20:22)
[2017-05-01] MEDS: Acetaminophen TAB* 325 MG PO PRN (21:12)
[2017-05-02] MEDS: ceFAZolin 1 GM VIAL(*) 1 GM in NS 0.9% 50 ML* 50 ML IVPB SCH (04:43)
[2017-05-02 06:18] LABS: BUN/Creatinine Ratio 18.9 (8-20); Calcium 8.6 mg/dL (8.6-10.3); EGFR African American 145.4 (>60); EGFR Non-African American 113.1 (>60); Potassium 3.5 mmol/L (3.5-5.0)
--- NOTE | 2017-05-02 09:06 | PN ---
Subjective Date of Service: 05/02/17 Interval History: Pt is feeling ok. She denies any pain. She starts talking about how people come in to the room early in the AM and early in the PM to try to get her to do something. She is not able to elaborate any further. Family History: Unchanged from Admission Social History: Unchanged from Admission Past Medical History: Unchanged from Admission Objective Active Medications: Acetaminophen (Tylenol Tab*) 650 mg PO Q6H PRN PRN Reason: FEVER/PAIN Last Admin: 05/01/17 21:12 Dose: 650 mg Albuterol (Ventolin Hfa Inhaler*) 2 puff INH Q4H PRN PRN Reason: SOB/WHEEZING Amlodipine Besylate (Norvasc Tab*) 10 mg PO DAILY [facility] Last Admin: 05/01/17 09:14 Dose: 10 mg Aspirin (Aspirin Ec Low Dose*) 81 mg PO DAILY [facility] Last Admin: 05/01/17 09:14 Dose: 81 mg Citalopram Hydrobromide (Celexa Tab*) 20 mg PO DAILY [facility] Last Admin: 05/01/17 09:13 Dose: 20 mg Dextrose (D50w Syringe 50 Ml*) 12.5 gm IV PUSH .FOR FS < 60 - SS PRN PRN Reason: FS < 60 Donepezil HCl (Aricept Tab*) 10 mg PO BEDTIME [facility] Last Admin: 05/01/17 20:22 Dose: 10 mg Enoxaparin Sodium (Lovenox(*)) 90 mg SUBCUT Q12H [facility] Last Admin: 05/01/17 20:22 Dose: 90 mg Hydrochlorothiazide (Hydrodiuril Tab*) 12.5 mg PO DAILY [facility] Last Admin: 05/01/17 09:14 Dose: 12.5 mg Cefazolin Sodium 1 gm/ Sodium (Chloride) 50 mls @ 200 mls/hr IVPB Q8H [facility] Last Admin: 05/02/17 04:43 Dose: 200 mls/hr Ibuprofen (Motrin Tab*) 400 mg PO BID PRN PRN Reason: PAIN Insulin Human Lispro (Humalog*) 0 - 10 units SUBCUT AC [facility] PRN Reason: Protocol Last Admin: 05/01/17 16:50 Dose: Not Given Memantine (Namenda Xr Cap*) 28 mg PO DAILY [facility] Last Admin: 09/24/17 09:12 Dose: 28 mg Nebivolol (Bystolic Tab (Nf)) 10 mg PO DAILY [facility] Last Admin: 05/01/17 09:13 Dose: 10 mg Potassium Chloride (Klor-Con Liquid*) 40 meq PO DAILY [facility] Last Admin: 05/01/17 09:12 Dose: 40 meq Sodium Chloride (Sodium Chloride 0.65% Nasal [place]*) 1 spray BOTH NARES Q4H PRN PRN Reason: Dry nose Vital Signs 05/01/17 05/01/17 05/01/17 15:41 19:50 22:17 Temperature 98.3 F 97.9 F Pulse Rate 67 75 Respiratory 22 20 20 Rate Blood Pressure 122/64 147/59 (mmHg) O2 Sat by Pulse 97 90 Oximetry 05/02/17 05/02/17 00:04 03:15 Temperature 97.0 F 98.6 F Pulse Rate 73 69 Respiratory 19 18 Rate Blood Pressure 120/60 154/55 (mmHg) O2 Sat by Pulse 96 95 Oximetry Oxygen Devices in Use Now: Nasal Cannula - 4L-95% Appearance: Elderly female lying in bed, NAD Eyes: No Scleral Icterus Ears/Nose/Mouth/Throat: Mucous Membranes Moist Respiratory: Symmetrical Chest Expansion and Respiratory Effort, Clear to Auscultation - few RLL crackles Cardiovascular: NL Sounds; No Murmurs; No JVD, RRR, No Edema Abdominal: NL Sounds; No Tenderness; No Distention Extremities: No Clubbing, Cyanosis Skin: No Rash or Ulcers, No Nodules or Sclerosis, - - mild warmth of the RLE but no erythema Neurological: - - pleasantly confused Result Diagrams: 05/01/17 05:54 05/02/17 05:47 Microbiology and Other Data: Microbiology 04/28/17 23:17 Nasal Screen MRSA (PCR)(FIFI) - Final Nasal Mrsa Negative 04/28/17 23:17 Influenza Types A,B Antigen (FIFI) - Final Nasal Specimen received for Influenza A/B Molecular testing Assess/Plan/Problems-Billing Ms Mcnair is a 71 yo F with hx of advanced dementia, HTN, CAD, DM, and osteoporosis who presents to [facility] with fever and found to have a R LE cellulitis and acute hypoxic respiratory failure. - Patient Problems (1) Cellulitis Current Visit: Yes Status: Acute Code(s): L03.90 - CELLULITIS, UNSPECIFIED SNOMED Code(s): 773778150 Comment: On admission the patient was septic secondary to a R LE cellulitis. She was septic based on both sepsis 2 (fever and leukocytosis) and sepsis 3 guidelines (low MAP and elevateed bilirubin). The sepsis has resolved. She remains on cefazolin but can change to keflex to complete 3 more days of therapy (including today). (2) Acute respiratory failure with hypoxia Current Visit: Yes Status: Acute Code(s): J96.01 - ACUTE RESPIRATORY FAILURE WITH HYPOXIA SNOMED Code(s): 84023095 Comment: The patient yesterday refused the CTA. Today she agrees-will get repeat CTA to finally r/o PE. Her O2 saturations have fluctuated between 87-92% off O2. No significant crackles except in R base. Will continue to monitor her supplemental O2 needs. She remains on therapeutic dosed lovenox and will continue this until the repeat CTA is done. If negative will decrease to prophylaxis dosing lovenox. (3) CAD (coronary artery disease) Current Visit: Yes Status: Acute Code(s): I25.10 - ATHSCL HEART DISEASE OF [place] CORONARY ARTERY W/O ANG PCTRS SNOMED Code(s): 68789345 Comment: Continue ASA and [id number] complaints at this time. (4) HTN (hypertension) Current Visit: Yes Status: Acute Code(s): I10 - ESSENTIAL (PRIMARY) HYPERTENSION SNOMED Code(s): 46843673 Comment: BP is under good control. Continue amlodipine, bystolic and HCTZ. Her losartan has been held-continue to monitor the BP and add back the losartan if necessary. (5) Diabetes Current Visit: Yes Status: Acute Code(s): E11.9 - TYPE 2 DIABETES MELLITUS WITHOUT COMPLICATIONS SNOMED Code(s): 16988188 Comment: Type II DM. Will resume glipizide 5mg BID and continue the lispro sliding scale. (6) Dementia Current Visit: Yes Status: Acute Code(s): F03.90 - UNSPECIFIED DEMENTIA WITHOUT BEHAVIORAL DISTURBANCE SNOMED Code(s): 24412239 Comment: Continue namenda and donepezil. (7) DVT prophylaxis Current Visit: Yes Status: Acute Code(s): XXS2040 - SNOMED Code(s): 763180877 Comment: Lovenox (8) DNR (do not resuscitate) Current Visit: Yes Status: Acute Status and Disposition: Inpatient for further infectious/hypoxia work-up
[2017-05-02] MEDS ORDERED: Iodixanol* (CONTRAST) 320 MG/ML 100 ML SDV IV ONE (09:17)
--- NOTE | 2017-05-02 10:36 | PN ---
Progress Note - Progress Note Date of Service: 05/02/17 SOAP: Subjective: CC: cellulitis HPI: 71 year old woman admitted with sepsis and encephalopathy due to R leg cellulitis. She's not sure how her leg is and has no complaints. No fever, rash, or diarrhea. Objective: [] Vital Signs Temp 37.0 C 05/02/17 03:15 Pulse 69 05/02/17 03:15 Resp 18 05/02/17 03:15 BP 154/55 05/02/17 03:15 Pulse Ox 95 05/02/17 03:15 Intake & Output 05/01/17 05/02/17 05/02/17 18:59 06:59 18:59 Intake Total 1032 73 Output Total 0 Balance 1032 73 Weight 188 lb 188 lb Intake: IV Fluids 102 18 Kefzol 60 NS (0.9%) 42 18 IVPB 55 Cefazolin 55 Oral 930 0 Output: Urine 0 Other: Estimated Void Medium Medium # Bowel Movements 0 Estimated Stool Amount Small Small # Voids 2 3 Gen:awake HEENT:PERRL, MMM Neck:Supple Heart:RRR no murmur Lungs:CTA BL Abd:+BS NTND soft Skin: no rash Assessment: 1. cellulitis, resolving 2. dementia 3. PCN allergy, tolerating ancef well Plan: 1. agree with 3 more days of keflex and fu with PCP
[2017-05-02] MEDS: Enoxaparin(*) 100 MG/ML SYR SUBCUT SCH (11:17)
[2017-05-02] MEDS: Citalopram TAB* 20 MG PO SCH (11:19)
[2017-05-02] MEDS: amLODIPine TAB* 5 MG PO SCH (11:19)
[2017-05-02] MEDS: Aspirin EC Low Dose* 81 MG TAB.EC PO SCH (11:19)
[2017-05-02] MEDS: Potassium Chloride LIQUID* 20 MEQ PACKET PO SCH (11:19)
[2017-05-02] MEDS: Hydrochlorothiazide TAB* 25 MG PO SCH (11:20)
[2017-05-02] MEDS: CMCS Nebivolol TAB (NF) 2.5 MG TAB PO SCH (11:24)
[2017-05-02] MEDS: Memantine XR CAP* 28 MG CAP.XR PO SCH (11:26)
[2017-05-02] MEDS: Insulin LISPRO* 1 UNITS UNIT SUBCUT SCH ×3 (11:48→17:37)
[2017-05-02] MEDS ORDERED: Cephalexin CAP* 500 MG PO SCH (13:00)
--- NOTE | 2017-05-02 13:54 | RAD ---
HISTORY: Evaluate for pulmonary embolism., Hypoxia COMPARISONS: Chest x-ray dated April 30, 2017, CT dated September 28, 2016 TECHNIQUE: Multiple contiguous axial CT scans of the chest were obtained after the administration of nonionic intravenous contrast, timed to the pulmonary arterial phase of contrast enhancement.. Coronal and sagittal multiplanar reformations are also submitted for review. FINDINGS: The study is limited by patient motion artifact. This limits evaluation of the segmental branches of the lower lobes bilaterally. NECK AND THYROID: The lower neck and thyroid are unremarkable. CHEST WALL: There is no lower cervical, axillary, or supraclavicular lymphadenopathy by size criteria. HEART AND PERICARDIUM: There is biatrial and biventricular enlargement. AORTA AND PULMONARY VASCULATURE: Evaluation is limited by patient motion artifact symptoms associated with detection of emboli within the segmental branches of the lower lungs bilaterally. The ampulla noted on appears examination and not visualized on the current examination. There is no pulmonary arterial filling defect on the current examination. Evaluation of the aorta is limited secondary to the phase of contrast demonstration. There is atherosclerosis of the aorta. MEDIASTINUM: There is no mediastinal lymphadenopathy by size criteria. SYEDA: There is no hilar lymphadenopathy by size criteria. AIRWAY AND ESOPHAGUS: The airway is unremarkable, without endobronchial filling defect. The esophagus is grossly normal. LUNG PARENCHYMA: There is minimal dependent atelectasis. The study is otherwise unremarkable for the phase of respiration. PLEURA: There are trace bilateral pleural effusions. UPPER ABDOMEN: The upper abdomen is unremarkable. BONES AND SOFT TISSUES: Degenerative changes are noted OTHER: None. IMPRESSION: 1. LIMITED STUDY. 2. WITHIN THE LIMITATIONS OF STUDY, THERE IS NO PULMONARY ARTERIAL FILLING DEFECT TO SUGGEST PULMONARY WAS.
[2017-05-02] MEDS: Cephalexin CAP* 500 MG PO SCH ×2 (14:38→20:55)
[2017-05-02] MEDS: Acetaminophen TAB* 325 MG PO PRN (15:24)
[2017-05-02] MEDS: glipiZIDE TAB* 5 MG PO SCH (17:37)
[2017-05-02] MEDS: Ibuprofen TAB* 400 MG PO PRN (19:14)
[2017-05-02] MEDS: Donepezil TAB* 5 MG PO SCH (20:55)
[2017-05-03] MEDS: Cephalexin CAP* 500 MG PO SCH ×3 (09:00→20:01)
[2017-05-03] MEDS: Hydrochlorothiazide TAB* 25 MG PO SCH (09:01)
[2017-05-03] MEDS: Insulin LISPRO* 1 UNITS UNIT SUBCUT SCH ×3 (09:01→18:47)
[2017-05-03] MEDS: Potassium Chloride LIQUID* 20 MEQ PACKET PO SCH (09:03)
[2017-05-03] MEDS: Ibuprofen TAB* 400 MG PO PRN ×2 (09:04→20:01)
[2017-05-03] MEDS: Aspirin EC Low Dose* 81 MG TAB.EC PO SCH (09:04)
[2017-05-03] MEDS: Enoxaparin(*) 40 MG/0.4 ML SYR SUBCUT SCH (09:05)
[2017-05-03] MEDS: glipiZIDE TAB* 5 MG PO SCH ×2 (09:05→16:57)
[2017-05-03] MEDS: amLODIPine TAB* 5 MG PO SCH (09:05)
[2017-05-03] MEDS: CMCS Nebivolol TAB (NF) 2.5 MG TAB PO SCH (09:07)
[2017-05-03] MEDS: Citalopram TAB* 20 MG PO SCH (09:07)
[2017-05-03] MEDS: Memantine XR CAP* 28 MG CAP.XR PO SCH (09:08)
[2017-05-03] MEDS: Acetaminophen TAB* 325 MG PO PRN ×2 (12:12→23:10)
[2017-05-03] MEDS ORDERED: Furosemide IV* 10 MG/ML 2 ML VIAL (20 MG) IV ONE ×2 (13:01→14:45)
--- NOTE | 2017-05-03 13:39 | PN ---
Subjective Date of Service: 05/03/17 Interval History: Patient seen and examined at bedside. Patient denies shortness of breath and states that there is an issue with her getting back to her apartment. The patient remains on 4L NC. Family History: Unchanged from Admission Social History: Unchanged from Admission Past Medical History: Unchanged from Admission Objective Active Medications: Acetaminophen (Tylenol Tab*) 650 mg PO Q6H PRN Albuterol (Ventolin Hfa Inhaler*) 2 puff INH Q4H PRN Amlodipine Besylate (Norvasc Tab*) 10 mg PO DAILY GINGER Aspirin (Aspirin Ec Low Dose*) 81 mg PO DAILY GINGER Cephalexin HCl (Keflex Cap*) 500 mg PO TID GINGER Citalopram Hydrobromide (Celexa Tab*) 20 mg PO DAILY GINGER Dextrose (D50w Syringe 50 Ml*) 12.5 gm IV PUSH .FOR FS < 60 - SS PRN Donepezil HCl (Aricept Tab*) 10 mg PO BEDTIME GINGER Enoxaparin Sodium (Lovenox(*)) 40 mg SUBCUT Q24H GINGER Glipizide (Glucotrol Tab*) 5 mg PO 0800,1700 GINGER Hydrochlorothiazide (Hydrodiuril Tab*) 12.5 mg PO DAILY GINGER Ibuprofen (Motrin Tab*) 400 mg PO BID PRN Insulin Human Lispro (Humalog*) 0 units SUBCUT AC GINGER Memantine (Namenda Xr Cap*) 28 mg PO DAILY GINGER Nebivolol (Bystolic Tab (Nf)) 10 mg PO DAILY GINGER Potassium Chloride (Klor-Con Liquid*) 40 meq PO DAILY GINGER Sodium Chloride (Sodium Chloride 0.65% Nasal [place]*) 1 spray BOTH NARES Q4H PRN 05/03/17 09:00 Temperature 98.1 F Pulse Rate 70 Respiratory 16 Rate Blood Pressure 132/59 (mmHg) O2 Sat by Pulse 94 Oximetry Oxygen Devices in Use Now: Nasal Cannula - 4L-95% Appearance: sitting up in bed, NAD Eyes: No Scleral Icterus, PERRLA Ears/Nose/Mouth/Throat: NL Teeth, Lips, Gums Neck: NL Appearance and Movements; NL JVP Respiratory: Symmetrical Chest Expansion and Respiratory Effort, - - R base crackles Cardiovascular: NL Sounds; No Murmurs; No JVD, RRR Abdominal: NL Sounds; No Tenderness; No Distention Extremities: - - 1+ ankle edema Skin: - - warmth of RLE Neurological: - - alert and oriented to self only Lines/Tubes/Other Access: Clean, Dry and Intact Peripheral IV Nutrition: Taking PO's Result Diagrams: 05/01/17 05:54 05/02/17 05:47 Assess/Plan/Problems-Billing Ms Mcnair is a 71 yo F with hx of advanced dementia, HTN, CAD, DM, and osteoporosis who presents to [facility] [place] with fever and found to have a R LE cellulitis and acute hypoxic respiratory failure. - Patient Problems (1) Acute respiratory failure with hypoxia Comment: Repeat CTA was limited but sufficient to see no pulmonary artery filling defect. Lovenox change to prophylactic dose. Patient is still 88-92% on 4L. CXR looks like fluid overload, but could also be ARDS. She did receive a significant amount of fluid which she was septic but she has been incontinent so I/O are not well measured. Will give 20mg IV Lasix x1 to see if this imporves her hypoxia. Continue daily weights. Wean oxygen as tolerated. (2) Cellulitis Comment: On admission the patient was septic secondary to a R LE cellulitis. Sepsis has now resolved. She received IV Ancef and has now been transitioned to PO keflex which will end tomorrow (05/04). (3) CAD (coronary artery disease) Comment: Continue ASA and iijp-[id number] complaints at this time. (4) HTN (hypertension) Comment: BP is under good control. Continue amlodipine, bystolic and HCTZ. Losartan held for now. (5) Diabetes Comment: Type II DM. Continue glipizide 5mg BID and Lispro sliding scale. (6) Dementia Comment: Continue namenda and donepezil. (7) DVT prophylaxis Comment: Lovenox (8) DNR (do not resuscitate) Status and Disposition: Inpatient for further infectious/hypoxia work-up
[2017-05-03] MEDS: Donepezil TAB* 5 MG PO SCH (20:01)
[2017-05-04] MEDS: Acetaminophen TAB* 325 MG PO PRN (05:21)
[2017-05-04 07:04] LABS: Hematocrit 41 % (35-47); Hemoglobin 13.9 g/dl (12.0-16.0); Mean Corpuscular HGB Conc 34 g/dl (31-36); Mean Corpuscular Hemoglobin 31 pg (27-31); Mean Corpuscular Volume 91 fL (80-97); Mean Platelet Volume 10 um3 (7.4-10.4); Red Blood Count 4.51 10^6/ul (4.0-5.4); Red Cell Distribution Width 13 % (10.5-15); White Blood Count 10.6 10^3/ul (3.5-10.8)
[2017-05-04 07:18] LABS: BUN/Creatinine Ratio 19.2 (8-20); Calcium 9.4 mg/dL (8.6-10.3); EGFR African American 148.7 (>60); EGFR Non-African American 115.6 (>60); Potassium 3.4 mmol/L (3.5-5.0)
--- NOTE | 2017-05-04 08:48 | RAD ---
INDICATION: Hypoxia COMPARISON: April 30, 2017 TECHNIQUE: PA and lateral dual-energy views were obtained. FINDINGS: Bones/Soft Tissues: There are no acute bony findings. Cardiomediastinal: The heart is normal in size. The central pulmonary vessels and interstitium are mildly prominent. Lungs: There is no focal consolidation. Pleura: There are no significant effusions. Other: None IMPRESSION: MILD VASCULAR CONGESTION WITH IMPROVEMENT.
[2017-05-04] MEDS: Hydrochlorothiazide TAB* 25 MG PO SCH (09:07)
[2017-05-04] MEDS: CMCS Nebivolol TAB (NF) 2.5 MG TAB PO SCH (09:08)
[2017-05-04] MEDS: amLODIPine TAB* 5 MG PO SCH (09:08)
[2017-05-04] MEDS: Aspirin EC Low Dose* 81 MG TAB.EC PO SCH (09:08)
[2017-05-04] MEDS: Cephalexin CAP* 500 MG PO SCH ×3 (09:08→21:18)
[2017-05-04] MEDS: Potassium Chloride LIQUID* 20 MEQ PACKET PO SCH (09:08)
[2017-05-04] MEDS: Insulin LISPRO* 1 UNITS UNIT SUBCUT SCH ×3 (09:09→17:28)
[2017-05-04] MEDS: Memantine XR CAP* 28 MG CAP.XR PO SCH (09:09)
[2017-05-04] MEDS: Citalopram TAB* 20 MG PO SCH (09:09)
[2017-05-04] MEDS: glipiZIDE TAB* 5 MG PO SCH ×2 (09:09→17:30)
[2017-05-04] MEDS: Enoxaparin(*) 40 MG/0.4 ML SYR SUBCUT SCH (09:10)
[2017-05-04] MEDS ORDERED: Furosemide IV* 10 MG/ML 2 ML VIAL (20 MG) IV ONE (12:07)
[2017-05-04] MEDS ORDERED: Potassium Chloride LIQUID* 20 MEQ PACKET PO ONE (12:30)
[2017-05-04] MEDS: Ibuprofen TAB* 400 MG PO PRN ×2 (12:35→21:18)
--- NOTE | 2017-05-04 12:42 | PN ---
Subjective Date of Service: 05/04/17 Interval History: Patient seen and examined at bedside. Patient states she feels a lot better than yesterday. She has taken off her oxygen by herself and sat 89-92 at rest off oxygen. Patient denies pain; afebrile. Family History: Unchanged from Admission Social History: Unchanged from Admission Past Medical History: Unchanged from Admission Objective Active Medications: Acetaminophen (Tylenol Tab*) 650 mg PO Q6H PRN Albuterol (Ventolin Hfa Inhaler*) 2 puff INH Q4H PRN Amlodipine Besylate (Norvasc Tab*) 10 mg PO DAILY GINGER Aspirin (Aspirin Ec Low Dose*) 81 mg PO DAILY GINGER Cephalexin HCl (Keflex Cap*) 500 mg PO TID GINGER Citalopram Hydrobromide (Celexa Tab*) 20 mg PO DAILY GINGER Donepezil HCl (Aricept Tab*) 10 mg PO BEDTIME GINGER Enoxaparin Sodium (Lovenox(*)) 40 mg SUBCUT Q24H GINGER Glipizide (Glucotrol Tab*) 5 mg PO 0800,1700 GINGER Ibuprofen (Motrin Tab*) 400 mg PO BID PRN Insulin Human Lispro (Humalog*) 0 units SUBCUT AC GINGER Memantine (Namenda Xr Cap*) 28 mg PO DAILY GINGER Nebivolol (Bystolic Tab (Nf)) 10 mg PO DAILY GINGER Potassium Chloride (Klor-Con Liquid*) 40 meq PO DAILY GINGER Potassium Chloride (Klor-Con Liquid*) 40 meq PO ONCE ONE Sodium Chloride (Sodium Chloride 0.65% Nasal [place]*) 1 spray BOTH NARES Q4H PRN Vital Signs 05/03/17 05/03/17 05/03/17 14:30 15:55 18:29 Temperature 98.4 F 97.3 F 97.6 F Pulse Rate 58 70 69 Respiratory 20 18 18 Rate Blood Pressure 119/44 135/43 142/63 (mmHg) O2 Sat by Pulse 99 96 92 Oximetry 05/03/17 05/04/17 05/04/17 20:00 02:28 08:00 Temperature 98.2 F Pulse Rate 71 Respiratory 17 16 18 Rate Blood Pressure 148/68 (mmHg) O2 Sat by Pulse 92 87 87 Oximetry 05/04/17 05/04/17 08:08 11:42 Temperature 98.5 F 98.3 F Pulse Rate 70 70 Respiratory 16 16 Rate Blood Pressure 142/66 111/49 (mmHg) O2 Sat by Pulse 89 96 Oximetry Oxygen Devices in Use Now: None - 4L-95% Appearance: sitting up in bed, NAD Eyes: No Scleral Icterus, PERRLA Ears/Nose/Mouth/Throat: NL Teeth, Lips, Gums Neck: NL Appearance and Movements; NL JVP Respiratory: Symmetrical Chest Expansion and Respiratory Effort, Clear to Auscultation Cardiovascular: NL Sounds; No Murmurs; No JVD, RRR Abdominal: NL Sounds; No Tenderness; No Distention Extremities: No Edema Skin: - - RLE warmth improved Neurological: NL Muscle Strength and Tone Lines/Tubes/Other Access: Clean, Dry and Intact Peripheral IV Nutrition: Taking PO's Result Diagrams: 05/04/17 06:54 05/04/17 06:54 Assess/Plan/Problems-Billing Ms Mcnair is a 71 yo F with hx of advanced dementia, HTN, CAD, DM, and osteoporosis who presents to [facility] [place] with fever and found to have a R LE cellulitis and acute hypoxic respiratory failure. - Patient Problems (1) Acute respiratory failure with hypoxia Comment: Suspect ARDS vs fluid overload. Responded to 10mg of IV Lasix yesterday and now 90-92% on room air. CXR this AM looks improved. Will redose Lasix 20mg IV x1 today. Attempt to keep on room air with sat 88%. Continue daily weights. (2) Cellulitis Comment: On admission the patient was septic secondary to a R LE cellulitis. Sepsis has now resolved. She received IV Ancef and Keflex which will stop with last dose today. (3) CAD (coronary artery disease) Comment: Continue ASA and juig-kuyjcme-wd complaints at this time. (4) HTN (hypertension) Comment: BP is under good control. Continue amlodipine, bystolic and HCTZ. Losartan held for now. (5) Diabetes Comment: Type II DM. Continue glipizide 5mg BID and Lispro sliding scale. (6) Dementia Comment: Continue namenda and donepezil. (7) DVT prophylaxis Comment: Shirinnox (8) DNR (do not resuscitate) Status and Disposition: Inpatient for further infectious/hypoxia work-up. If patient can remain on room air overnight, plan to discharge in AM to [facility].
[2017-05-04] MEDS: Donepezil TAB* 5 MG PO SCH (21:18)
[2017-05-05 06:15] LABS: BUN/Creatinine Ratio 24.5 (8-20); Calcium 9.7 mg/dL (8.6-10.3); EGFR African American 145.4 (>60); EGFR Non-African American 113.1 (>60); Potassium 3.4 mmol/L (3.5-5.0)
[2017-05-05] MEDS: Insulin LISPRO* 1 UNITS UNIT SUBCUT SCH ×2 (08:18→12:56)
[2017-05-05] MEDS: Enoxaparin(*) 40 MG/0.4 ML SYR SUBCUT SCH (08:18)
[2017-05-05] MEDS: Memantine XR CAP* 28 MG CAP.XR PO SCH (08:18)
[2017-05-05] MEDS: glipiZIDE TAB* 5 MG PO SCH (08:19)
[2017-05-05] MEDS: Citalopram TAB* 20 MG PO SCH (08:19)
[2017-05-05] MEDS: Aspirin EC Low Dose* 81 MG TAB.EC PO SCH (08:19)
[2017-05-05] MEDS: amLODIPine TAB* 5 MG PO SCH (08:20)
[2017-05-05] MEDS: Potassium Chloride LIQUID* 20 MEQ PACKET PO SCH (08:20)
[2017-05-05] MEDS: CMCS Nebivolol TAB (NF) 2.5 MG TAB PO SCH (08:20)
--- NOTE | 2017-05-05 11:26 | PN ---
Subjective Date of Service: 05/05/17 Interval History: Patient seen and examined at bedside. Patient pleasantly confused. Denies pain and reports breathing is comfortable. Family History: Unchanged from Admission Social History: Unchanged from Admission Past Medical History: Unchanged from Admission Objective Active Medications: Acetaminophen (Tylenol Tab*) 650 mg PO Q6H PRN Albuterol (Ventolin Hfa Inhaler*) 2 puff INH Q4H PRN Amlodipine Besylate (Norvasc Tab*) 10 mg PO DAILY GINGER Aspirin (Aspirin Ec Low Dose*) 81 mg PO DAILY GINGER Citalopram Hydrobromide (Celexa Tab*) 20 mg PO DAILY GINGER Dextrose (D50w Syringe 50 Ml*) 12.5 gm IV PUSH .FOR FS < 60 - SS PRN Donepezil HCl (Aricept Tab*) 10 mg PO BEDTIME GINGER Enoxaparin Sodium (Lovenox(*)) 40 mg SUBCUT Q24H GINGER Glipizide (Glucotrol Tab*) 5 mg PO 0800,1700 GINGER Ibuprofen (Motrin Tab*) 400 mg PO BID PRN Insulin Human Lispro (Humalog*) 0 units SUBCUT AC GINGER Memantine (Namenda Xr Cap*) 28 mg PO DAILY GINGER Nebivolol (Bystolic Tab (Nf)) 10 mg PO DAILY GINGER Potassium Chloride (Klor-Con Liquid*) 40 meq PO DAILY GINGER Sodium Chloride (Sodium Chloride 0.65% Nasal [place]*) 1 spray BOTH NARES Q4H PRN Vital Signs 05/04/17 05/04/17 05/04/17 19:45 20:00 23:32 Temperature 97.8 F 98.2 F Pulse Rate 64 64 Respiratory 20 18 16 Rate Blood Pressure 124/51 129/58 (mmHg) O2 Sat by Pulse 90 90 90 Oximetry Oxygen Devices in Use Now: None - 4L-95% Appearance: sitting up in bed, NAD Eyes: No Scleral Icterus, PERRLA Ears/Nose/Mouth/Throat: NL Teeth, Lips, Gums Neck: NL Appearance and Movements; NL JVP Respiratory: Symmetrical Chest Expansion and Respiratory Effort, Clear to Auscultation Cardiovascular: NL Sounds; No Murmurs; No JVD, RRR Abdominal: NL Sounds; No Tenderness; No Distention Extremities: No Edema Skin: No Rash or Ulcers Neurological: Alert and Oriented x 3, NL Muscle Strength and Tone Lines/Tubes/Other Access: Clean, Dry and Intact Peripheral IV Nutrition: Taking PO's Result Diagrams: 05/04/17 06:54 05/05/17 05:36 Microbiology and Other Data: Microbiology 04/28/17 23:17 Nasal Screen MRSA (PCR)(FIFI) - Final Nasal Mrsa Negative 04/28/17 23:17 Influenza Types A,B Antigen (FIFI) - Final Nasal Specimen received for Influenza A/B Molecular testing Assess/Plan/Problems-Billing Ms Mcnair is a 71 yo F with hx of advanced dementia, HTN, CAD, DM, and osteoporosis who [place] [facility] [place] and found to have a R LE cellulitis and acute hypoxic respiratory failure. - Patient Problems (1) Acute respiratory failure with hypoxia Comment: Suspect ARDS vs fluid overload. Improved with additional Lasix yesterday and now 92-95% on room air. Will get pulmonology follow-up as an outpatient. (2) Cellulitis Comment: On admission the patient was septic secondary to a R LE cellulitis. Sepsis has now resolved. She received IV Ancef and Keflex for total of 5 day course. (3) CAD (coronary artery disease) Comment: Continue ASA and frko-utyfjix-rb complaints at this time. (4) HTN (hypertension) Comment: BP is under good control. Continue amlodipine, bystolic and HCTZ. Losartan held for now. (5) Diabetes Comment: Type II DM. Continue glipizide 5mg BID and Lispro sliding scale. (6) Dementia Comment: Continue namenda and donepezil. (7) DVT prophylaxis Comment: Shirinnox (8) DNR (do not resuscitate) Status and Disposition: Inpatient for further infectious/hypoxia work-up. If ok with [place], plan to discharge later today.
[2017-05-05 11:37] VITALS: BP 123/53
--- NOTE | 2017-05-06 01:35 | DS ---
CC: Dr. Keating; Dr. Luna* DISCHARGE SUMMARY: DATE OF ADMISSION: 04/28/17 DATE OF DISCHARGE: 05/05/17 PRIMARY CARE PHYSICIAN: Dr. Keating. SALESPERSON TOY TRAINS AND ACCESSORIES: Dr. Luna. ATTENDING PHYSICIAN: Dr. Lidya Quan* (report dictated by Fawn Henriquez NP). PRIMARY DIAGNOSES: 1. Acute hypoxic respiratory failure. 2. Sepsis secondary to cellulitis. 3. Increased confusion. SECONDARY DIAGNOSES: 1. Hypertension. 2. Diabetes. 3. Dementia. 4. Coronary artery disease. STUDIES WHILE IN THE HOSPITAL: 1. Chest x-ray, 04/28/17: Cardiomegaly, no active cardiopulmonary disease. 2. Right lower extremity Doppler, 04/28/17: No sonographic evidence of deep vein thrombosis. 3. 04/28/17, CT of the chest, abdomen, and pelvis with contrast: There is a highly limited pulmonary embolus examination due to respiratory motion artifact. There appears to be nonobstructive thrombus in the bilateral lobe segmental arterial branches. Mild diffuse ground glass opacification in the lungs seen in the setting of congestive heart failure. There is no definite focal infiltrative change of the gastroenteral tract, but air fluid levels were noted in the transverse colon, which could be seen in the setting of diarrheal disease. In the left of midline pelvis, there is a 5- to 6-cm low attenuation mass potentially originating in the left ovary, left adnexa, potentially in the left uterus. Further characterization may be needed with nonemergent pelvic ultrasound. There are additional chronic degenerative and iatrogenic findings described in the body of the report. They are unlikely to be directly related to the patient's current presentation. 4. Chest x-ray, portable, 04/30/17: Alveolar and interstitial pulmonary edema with interval worsening compared with 04/28/17 exam. On 05/04/17, chest PA and lateral with previous mild vascular congestion with improvement. 5. CTA of the chest, 05/02/17, limited study. Within the limitation of study, there was no pulmonary or arterial filling defect to suggest pulmonary embolism. 6. Transthoracic echocardiogram, 04/29/17: Mild left ventricular hypertrophy is observed. Global left ventricular wall motion and contractility within normal limits. The estimated ejection fraction is 60% to 65%. The right ventricular global systolic function is normal. Zhdm-pz-[id number] dilated atrium , left and right. The aortic valve leaflets are mildly thickened with good function. There is rhhnv-vy-mrqv mitral regurgitation. There is howws-ba-njzw tricuspid regurgitation. The right ventricular systolic pressure is estimated at 31 mmHg. No prior echo to compare. MEDICATIONS AT THE TIME OF DISCHARGE: There are no medication changes. Medications at discharge are same as admission. 1. Menthol methyl salicylate cream every 8 hours as needed. 2. Norvasc 10 mg daily. 3. Vitamin D3 50,000 units oral monthly. 4. Guaifenesin 200 mg oral every 4 hours as needed. 5. Aspirin 81 mg oral daily. 6. Celexa 20 mg oral daily. 7. Bystolic 10 mg oral daily. 8. Vitamin E 200 units oral daily. 9. Ibuprofen 400 oral twice daily as needed. 10. Aricept 10 mg oral at bedtime. 11. Tylenol Extra Strength 650 mg oral 3 times daily. 12. Namenda XR 20 mg oral daily. 13. Neurontin 200 mg oral 3 times daily. 14. Glipizide 5 mg oral twice daily. 15. Imodium Multi-Symptom Relief 1 tablet oral daily as needed. 16. Fosamax 70 mg oral weekly. 17. Albuterol inhaler 2 puffs inhaled every 4 hours as needed. The one change in medication is losartan potassium 100/12.5 mg has been discontinued. HISTORY OF PRESENT ILLNESS AND HOSPITAL COURSE: Ms. Mcnair is a 71-year-old female with past medical history significant for hypertension; CAD, status post stent; dementia; diabetes; osteoporosis, who presented to the emergency room on 04/28/17 from [facility] after she was found to have fever, nausea, vomiting, and altered mental status. The patient was admitted to the medical floor, placed on broad- spectrum antibiotics as well as aggressive fluid resuscitation. It was felt that the source of her infection was lower extremity cellulitis and she was initially placed on Ancef. This was gradually transitioned to Keflex and she completed a 6- day course of antibiotic for this. Initially, there was a CTA of her chest that suggested pulmonary embolism. She was initially fully anticoagulated but repeat CTA of her chest that was a better study did not show pulmonary embolus and full anticoagulation was discontinued. More likely the cause of her altered mental status and fever was her infection. She was seen by Dr. Remy from Infectious Disease. He felt that the fever, leukocytosis, and sepsis, which were all improving at this point were due to an anterior right leg cellulitis. Through the course of her hospitalization, her redness significantly improved. Her white count normalized to 10.6, down from 24,000. Unfortunately, with the fluid resuscitation, she began to have significant difficulty breathing. She required close to 4 to 6 L of oxygen with an oxygen saturation of 80%. There was a thought that this could have been from pulmonary embolism, but once there was a repeat CTA of the chest and did not show evidence of PE, it was felt this more likely an ARDS process versus fluid overload. She responded well to gradual diuresis. She was given a dose of 10 mg of Lasix followed by an additional dose the following day of 20 mg of Lasix. With this medication, her oxygen was weaned off and she was satting between 89% and 94% on room air. She does have a history of smoking and may have an underlying pulmonary process as well. For this reason, she will be referred as an outpatient to see Dr. Luna , the labor crew supervisor. Regarding her blood pressure, initially medications were held in the acute phase and gradually restarted as her blood pressure stabilized. This morning, her systolic blood pressure is only 120 since her losartan and hydrochlorothiazide are still on hold and will be held until her systolic is greater than 140. All of her other home medications both for her diabetes and dementia were continued while she was here and sugars remained controlled. She was seen by Physical Therapy and Occupational Therapy and deemed independent and stable to return to [facility] today. Vitals are as follows: Temperature 98.6, heart rate 65, respiratory rate 18, blood pressure 122/53, oxygen saturation 94% on room air. At this point, she was stable for discharge. DISCHARGE PLANNING: The patient is discharged on a regular diet with activity as tolerated. The patient should be seen by Dr. Keating within 4 to 7 days. The patient has a consultation with Dr. Luna on 06/08/17 at 10:15 at her office. The patient should return to the hospital if she experiences any altered mental status, high fever, or worsening shortness of breath. I reviewed all these instructions with the patient and her daughter, they agreeable with the discharge today. This is a summarized report of a complex medical history and hospital stay. For more details, please see the entire medical record. TIME SPENT: Time for this discharge was 60 minutes and 35 minutes was spent with the patient and her daughter discussing medication, discharge, and followup instructions. CONDITION ON DISCHARGE: Stable. FAWN HENRIQUEZ NP [id number]/[facility] #: [id number] MTDAron
--- NOTE | 2017-05-06 15:10 | ED ---
Jenn Purdy Alfonso scribed for Ye Nuñez MD on 04/28/17 at 1419 . HPI Febrile Illness - HPI Summary HPI Summary: This patient is a 71 year old F BIBA from [facility] to [facility] accompanied by daughter with a chief complaint of febrile illness since this morning. The patient rates the pain 5/10 in severity. Symptoms aggravated by nothing. Symptoms alleviated by nothing. She was given Tylenol FLAT S[employer]TER [employer]OR. Patient reports chills, abdominal pain, nausea, vomiting, dry heaving, loss of appetite, cough, back pain, and bilateral LE pain. PMHx includes DM, HLD , and dementia. - History of Current Complaint Chief Complaint: EDFever Time Seen by Provider: 04/28/17 13:42 Hx Obtained From: Patient Onset/Duration: Started Hours Ago, Still Present Timing: Constant Current Severity: Moderate Pain Intensity: 5 Pain Scale Used: 0-10 Numeric Aggravating Factors: Nothing Alleviating Factors: Nothing Associated Signs and Symptoms: Other: - chills, abdominal pain, nausea, vomiting , dry heaving, loss of appetite, cough, back pain, and bilateral LE pain - Allergy/Home Medications Allergies/Adverse Reactions: Allergies Allergy/AdvReac Type Severity Reaction Status Date / Time Penicillins Allergy Unknown Verified 07/27/16 15:55 Reaction Details Home Medications: Home Medications Albuterol inh POWDER (NF) [Proair Respiclick] 2 puff INH Q4H PRN 04/28/17 [ History Confirmed 04/28/17] Alendronate Sodium [Fosamax-] 70 mg PO WEEKLY 04/28/17 [History Confirmed ] Gabapentin CAP(*) [Neurontin 100 mg CAP(*)] 200 mg PO TID 04/28/17 [History Confirmed 04/28/17] Loperamide-Simethicone [Imodium Multi-Symptom Rel 2-125 mg] 1 tab PO DAILY PRN 04/28/17 [History Confirmed 04/28/17] glipiZIDE TAB* [Glucotrol TAB*] 5 mg PO BID 04/28/17 [History Confirmed 04/28/17 ] PMH/Surg Hx/FS Hx/Imm Hx Endocrine/Hematology History: Reports: Hx Diabetes - diet controlled Cardiovascular History: Reports: Hx Hypertension Musculoskeletal History: Denies: Hx Osteoporosis Psychiatric History: Reports: Other Psychiatric Issues/Disorders - dementia - Surgical History Surgery Procedure, Year, and Place: lumbar spine surgery. R hip surgery - Immunization History Date of Tetanus Vaccine: Unk Date of Influenza Vaccine: Unk Infectious Disease History: Unable to Obtain/Confirm Infectious Disease History: Denies: History Other Infectious Disease, Traveled Outside the [place] in Last 30 Days - Family History Known Family History: Positive: Hypertension, Diabetes - Social History Alcohol Use: None Substance Use Type: Reports: None Smoking Status (MU): Former Smoker Review of Systems Positive: Fever, Chills Negative: Erythema Negative: Sore Throat Negative: Chest Pain Positive: Cough. Negative: Shortness Of Breath Positive: Abdominal Pain, Vomiting, Nausea, Other - dry heaving, loss of appetite Negative: dysuria, hematuria Positive: Other - back pain, and bilateral LE pain. Negative: Edema Negative: Rash Neurological: Other - Negative dizziness All Other Systems Reviewed And Are Negative: Yes Physical Exam Triage Information Reviewed: Yes Vital Signs On Initial Exam: Initial Vitals Temp Pulse Resp BP Pulse Ox 103.6 F 75 17 124/44 95 04/28/17 14:04/28/17 14:04/28/17 14:04/28/17 14:04/28/17 14:09 Vital Signs Reviewed: Yes Appearance: Positive: Well-Appearing, No Pain Distress, Obese Skin: Positive: Warm, Dry Head/Face: Positive: Normal Head/Face Inspection Eyes: Positive: Conjunctiva Clear Neck: Positive: Other: - Musculoskeletal ROM normal neck. (-) JVD, (-) Stridor, (-) Tracheal deviation, (-) Cervical adenopathy Respiratory/Lung Sounds: Positive: Other - Effort normal. (-) Respiratory distress, (-) Wheezes, (-) Cardiovascular: Positive: RRR, Other - Heart sounds normal; Intact distal pulses ; The pedal pulses are 2+ and symmetric. Radial pulses are 2+ and symmetric. (- ) Murmur Abdomen Description: Positive: Nontender, Soft, Other: - No rebound. Negative: Distended, Guarding Musculoskeletal: Positive: Other - RLE hot to the touch below the knee. RLE good pulses. FROM in right knee and no tenderness or effusion.. Negative: Edema Left, Edema Right Neurological: Positive: Alert, Oriented to Person Place, Time Psychiatric: Positive: Affect/Mood Appropriate Diagnostics - Vital Signs Vital Signs Temp Pulse Resp BP Pulse Ox 04/28/17 14:09 103.6 F 75 17 124/44 95 - Laboratory Lab Results: Lab Results 04/28/17 04/28/17 04/28/17 Range/Units 13:47 15:00 15:00 WBC 24.8 H (3.5-10.8) 10^3/ul RBC 4.62 (4.0-5.4) 10^6/ul Hgb 14.0 (12.0-16.0) g/dl Hct 42 (35-47) % MCV 91 (80-97) fL MCH 30 (27-31) pg MCHC 33 (31-36) g/dl RDW 13 (10.5-15) % Plt Count 236 (150-450) 10^3/ul MPV 10 (7.4-10.4) um3 Neut % (Auto) 88.6 H (38-83) % Lymph % (Auto) 6.0 L (25-47) % [place] % (Auto) 4.9 (1-9) % Eos % (Auto) 0 (0-6) % Baso % (Auto) 0.5 (0-2) % Absolute Neuts (auto) 21.9 H (1.5-7.7) 10^3/ul Absolute Lymphs (auto) 1.5 (1.0-4.8) 10^3/ul Absolute Monos (auto) 1.2 H (0-0.8) 10^3/ul Absolute Eos (auto) 0 (0-0.6) 10^3/ul Absolute Basos (auto) 0.1 (0-0.2) 10^3/ul Absolute Nucleated RBC 0.01 10^3/ul Nucleated RBC % 0 INR (Anticoag Therapy) 0.94 (0.89-1.11) APTT 27.7 (26.0-36.3) seconds Sodium (133-145) mmol/L Potassium (3.5-5.0) mmol/L Chloride (101-111) mmol/L Carbon Dioxide (22-32) mmol/L Anion Gap (2-11) mmol/L BUN (6-24) mg/dL Creatinine (0.51-0.95) mg/dL Est GFR ( Amer) (>60) Est GFR (Non-Af Amer) (>60) BUN/Creatinine Ratio (8-20) Glucose (70-100) mg/dL Lactic Acid (0.5-2.0) mmol/L Calcium (8.6-10.3) mg/dL Total Bilirubin (0.2-1.0) mg/dL AST (13-39) U/L ALT (7-52) U/L Alkaline Phosphatase (34-104) U/L Total Protein (6.4-8.9) g/dL Albumin (3.2-5.2) g/dL Globulin (2-4) g/dL Albumin/Globulin Ratio (1-3) Urine Color Yellow Urine Appearance Clear Urine pH 7 (5-9) Ur Specific [place] 1.010 (1.010-1.030) Urine Protein Negative (Negative) Urine Ketones Negative (Negative) Urine Blood Negative (Negative) Urine Nitrate Negative (Negative) Urine Bilirubin Negative (Negative) Urine Urobilinogen Negative (Negative) Ur Leukocyte Esterase Negative (Negative) Urine Glucose Negative (Negative) 04/28/17 04/28/17 Range/Units 15:00 15:00 WBC (3.5-10.8) 10^3/ul RBC (4.0-5.4) 10^6/ul Hgb (12.0-16.0) g/dl Hct (35-47) % MCV (80-97) fL MCH (27-31) pg MCHC (31-36) g/dl RDW (10.5-15) % Plt Count (150-450) 10^3/ul MPV (7.4-10.4) um3 Neut % (Auto) (38-83) % Lymph % (Auto) (25-47) % [place] % (Auto) (1-9) % Eos % (Auto) (0-6) % Baso % (Auto) (0-2) % Absolute Neuts (auto) (1.5-7.7) 10^3/ul Absolute Lymphs (auto) (1.0-4.8) 10^3/ul Absolute Monos (auto) (0-0.8) 10^3/ul Absolute Eos (auto) (0-0.6) 10^3/ul Absolute Basos (auto) (0-0.2) 10^3/ul Absolute Nucleated RBC 10^3/ul Nucleated RBC % INR (Anticoag Therapy) (0.89-1.11) APTT (26.0-36.3) seconds Sodium 135 (133-145) mmol/L Potassium 3.6 (3.5-5.0) mmol/L Chloride 98 L (101-111) mmol/L Carbon Dioxide 26 (22-32) mmol/L Anion Gap 11 (2-11) mmol/L BUN 8 (6-24) mg/dL Creatinine 0.66 (0.51-0.95) mg/dL Est GFR ( Amer) 112.9 (>60) Est GFR (Non-Af Amer) 87.8 (>60) BUN/Creatinine Ratio 12.1 (8-20) Glucose 161 H (70-100) mg/dL Lactic Acid 3.3 H* (0.5-2.0) mmol/L Calcium 9.4 (8.6-10.3) mg/dL Total Bilirubin 1.40 H (0.2-1.0) mg/dL AST 23 (13-39) U/L ALT 23 (7-52) U/L Alkaline Phosphatase 61 (34-104) U/L Total Protein 7.6 (6.4-8.9) g/dL Albumin 4.1 (3.2-5.2) g/dL Globulin 3.5 (2-4) g/dL Albumin/Globulin Ratio 1.2 (1-3) Urine Color Urine Appearance Urine pH (5-9) Ur Specific [place] (1.010-1.030) Urine Protein (Negative) Urine Ketones (Negative) Urine Blood (Negative) Urine Nitrate (Negative) Urine Bilirubin (Negative) Urine Urobilinogen (Negative) Ur Leukocyte Esterase (Negative) Urine Glucose (Negative) Result Diagrams: 05/04/17 06:54 05/05/17 05:36 Lab Statement: Any lab studies that have been ordered have been reviewed, and results considered in the medical decision making process. - Radiology CXR Radiology Interpretation Completed By: Radiologist - CARDIOMEGALY. NO ACTIVE CARDIOPULMONARY DISEASE. ED physician has reviewed this radiology report and agrees. - CT CTA Chest/Abd/Pelvis CT Interpretation Completed By: Radiologist - 1. This is a highly limited pulmonary embolism examination due to respiratory motion artifact. There appears to be nonobstructing thrombus in the bilateral lower lobe segmental arterial branches. 2. Mild diffuse groundglass opacification of the lungs could be seen in the setting of congestive heart failure. 3. There is no definite focal inflammatory change of the gastrointestinal tract but air-fluid levels are noted in the transverse colon which could be seen in the setting of diarrheal disease. #4 at the left of midline pelvis there is a 5 x 6 cm low- attenuation mass potentially originating at the left ovary, left adnexa or potentially the left uterus. Further characterization can be made with nonemergent pelvic ultrasound. 4. There are additional chronic, degenerative and iatrogenic findings described in the body the report that are unlikely to be directly related to the patient's current presentation.. ED physician has reviewed this radiology report and agrees. - Additional Comments Diagnostic Additional Comments: Venous Doppler study reveals, per radiologist, No sonographic evidence of deep vein thrombosis. ED physician has reviewed this radiology report and agrees. Course/Dx - Course Assessment/Plan: This patient is a 71 year old F BIBA from [facility] to [facility] accompanied by daughter with a chief complaint of febrile illness since this morning. The patient rates the pain 5/10 in severity. Symptoms aggravated by nothing. Symptoms alleviated by nothing. She was given Tylenol FLAT SORTER PROCESSOR. Patient reports chills, abdominal pain, nausea, vomiting , dry heaving, loss of appetite, cough, back pain, and bilateral LE pain. PMHx includes DM, HLD, and dementia. CXR reveals CARDIOMEGALY. NO ACTIVE CARDIOPULMONARY DISEASE. ED physician has reviewed this radiology report and agrees. CTA Chest/Abd/Pelvis reveals 1. This is a highly limited pulmonary embolism examination due to respiratory motion. artifact. There appears to be nonobstructing thrombus in the bilateral lower lobe. segmental arterial branches. 2. Mild diffuse groundglass opacification of the lungs could be seen in the setting of. congestive heart failure. 3. There is no definite focal inflammatory change of the gastrointestinal tract but. air-fluid levels are noted in the transverse colon which could be seen in the setting of. diarrheal disease. #4 at the left of midline pelvis there is a 5 x 6 cm low-attenuation. mass potentially originating at the left ovary, left adnexa or potentially the left. uterus. Further characterization can be made with nonemergent pelvic ultrasound. 4. There are additional chronic, degenerative and iatrogenic findings described in the. body the report that are unlikely to be directly related to the patient's current. presentation. ED physician has reviewed this radiology report and agrees. Venous Doppler study reveals, per radiologist, No sonographic evidence of deep vein thrombosis. ED physician has reviewed this radiology report and agrees. Consulted Dr. Keith (hospitalist) regarding the patient's condition and differential diagnoses including DVT, PE, pneumonia, and cellulitis. At 1730 Dr. Ortiz (hospitalist) agrees to admit. Patient will be admitted with follow up from Dr. Ortiz. The patient and daughter are agreeable with this plan. - Diagnoses Provider Diagnoses: Acute respiratory failure with hypoxia, HTN (hypertension), SIRS (systemic inflammatory response syndrome) - Provider Notifications Discussed Care Of Patient With: Jignesh Keith Time Discussed With Above Provider: 17:08 Instructed by Provider To: Other - Consulted Dr. Keith (hospitalist) regarding the patient's condition and differential diagnoses including DVT, PE, pneumonia, and cellulitis. At 1730 Dr. Ortiz (hospitalist) agrees to admit. Discharge - Discharge Plan Condition: Stable Disposition: ADMITTED TO [facility] documentation as recorded by the Jenn avalos Alfonso accurately reflects the service I personally performed and the decisions made by , Ye Nuñez MD.
== END 2017-05-05 13:30 | disposition home health service (06) | DRG 871 ==
LOC: ED 12:45 → MED 17:35
PROVIDERS: ADMIT Hospitalist; ATTEND Internal Medicine
DX: A41.9 Sepsis, unspecified organism (principal); J96.01 Acute respiratory failure with hypoxia; G93.40 Encephalopathy, unspecified; L03.115 Cellulitis of right lower limb; I10 Essential (primary) hypertension; E11.9 Type 2 diabetes mellitus without complications; F03.90 Unspecified dementia, unspecified severity, without behavioral disturbance, psychotic disturbance, mood disturbance, and anxiety; I08.1 Rheumatic disorders of both mitral and tricuspid valves; I25.10 Atherosclerotic heart disease of native coronary artery without angina pectoris; R41.0 Disorientation, unspecified; Z79.82 Long term (current) use of aspirin; Z79.84 Long term (current) use of oral hypoglycemic drugs; Z95.5 Presence of coronary angioplasty implant and graft; M81.0 Age-related osteoporosis without current pathological fracture; Z87.891 Personal history of nicotine dependence; Z88.0 Allergy status to penicillin; Z66 Do not resuscitate; E78.5 Hyperlipidemia, unspecified; Z82.49 Family history of ischemic heart disease and other diseases of the circulatory system; Z83.3 Family history of diabetes mellitus; E66.9 Obesity, unspecified; Z68.35 Body mass index [BMI] 35.0-35.9, adult
CPT/HCPCS: 36415; 71010; 71020; 71275; 74177; 80048; 80053; 81003; 81015; 83605; 83880; 84145; 85025; 85379; 85610; 85730; 86140; 86304; 87040; 87077; 87086; 87186; 87502; 87641; 93306; A9270-GY; J0690; J0744; J1630; J1650; J1940; J2060; J2405; J3370; Q9967

== ENCOUNTER 2017-12-03 14:01 | Emergency (ER) | payer MEDICARE ==
[2017-12-03 14:45] LABS: ABS Basophils 0.1 10^3/ul (0-0.2); ABS Eosinophils 0.1 10^3/ul (0-0.6); ABS Lymphocytes 2.3 10^3/ul (1.0-4.8); ABS Monocytes 0.7 10^3/ul (0-0.8); ABS Nucleated RBC 0 10^3/ul; Eosinophil % 0.9 % (0-6); Hematocrit 41 % (35-47); Hemoglobin 13.8 g/dl (12.0-16.0); Lymphocyte % 25.1 % (25-47); Mean Corpuscular HGB Conc 34 g/dl (31-36); Mean Corpuscular Hemoglobin 31 pg (27-31); Mean Corpuscular Volume 91 fL (80-97); Mean Platelet Volume 9.5 um3 (7.4-10.4); Nucleated Red Blood Cells % 0; Platelet Count 240 10^3/ul (150-450); Red Blood Count 4.48 10^6/ul (4.0-5.4); Red Cell Distribution Width 14 % (10.5-15); White Blood Count 9.2 10^3/ul (3.5-10.8)
[2017-12-03 15:03] LABS: EGFR Non-African American 72.2 (>60)
--- NOTE | 2017-12-03 15:03 | RAD ---
Indication: Fall this morning. Altered mental status. Comparison: November 18, 2016 Technique: Noncontrast CT vertex of skull through foramen magnum. Report: Severe prominence of the cerebral sulci and moderate prominence of the cerebellar fissures. Proportional mild enlargement of the ventricles. Patent basal cisterns. Decreased density in the periventricular and subcortical white matter while non-specific is most likely due to chronic microangiopathy. Negative for bowling matter white matter obscuration, intra or extra-axial hemorrhage, or mass effect. No suspicious abnormality at the visualized orbits. Negative for calvarial or skull base fracture or suspicious focal osseous lesions. Negative for scalp hematoma. IMPRESSION: Advanced involutional change and stigmata of chronic small vessel ischemic disease. No acute intracranial process evident.
[2017-12-03 16:25] LABS: Urine Appearance Cloudy; Urine Blood Negative (Negative); Urine Color Yellow; Urine Ketones Negative (Negative); Urine Protein Negative (Negative); Urine Specific Gravity 1.013 (1.010-1.030); Urine Urobilinogen Negative (Negative)
[2017-12-03 17:58] VITALS: BP 00/00
--- NOTE | 2017-12-03 18:06 | ED ---
Complex/Multi-Sys Presentation - HPI Summary HPI Summary: Patient is a 72-year-old female who presents emergency department for evaluation after a fall. Patient has a history of dementia and resides at a snf. Caregiver states that patient was found sitting on the floor in her room this afternoon. She was seen this morning prior to follow was appropriate without complaint. Caregiver states that patient has not been sick recently, had fevers or chills, chest pain, shortness of breath, abdominal pain , vomiting, diarrhea. Caregiver notes that patient seems to be more confused since fall and did not have an appetite at lunch. St[employer] Crab notes she has a hx of UTIs. No injuries were noted. Symptoms are moderate in severity. No current modifying factors. Patient currently has no complaints. - History Of Current Complaint Chief Complaint: EDAltMentalStatus Time Seen by Provider: 12/03/17 14:11 Hx Obtained From: Family/Starch Crab Hx From Patient Unobtainable Due To: Dementia - Allergies/Home Medications Allergies/Adverse Reactions: Allergies Allergy/AdvReac Type Severity Reaction Status Date / Time Penicillins Allergy Unknown Verified 12/03/17 14:06 Reaction Details PMH/Surg Hx/FS Hx/Imm Hx Previously Healthy: Yes Endocrine/Hematology History: Reports: Hx Diabetes - diet controlled Cardiovascular History: Reports: Hx Hypertension Comment Only: Other Cardiovascular Problems/Disorders - 2 cardiac stents in 2006 Respiratory History: Reports: Hx Pneumonia - 43 yrs ago and 2015, Hx Sleep Apnea - 50 yrs ago, noncompliant GI History: Comment Only: Other GI Disorders - some urgency, loose stools History: Denies: Hx Renal Disease Musculoskeletal History: Reports: Hx Arthritis, Hx Back Problems Denies: Hx Osteoporosis Sensory History: Reports: Hx Contacts or Glasses Denies: Hx Hearing Aid Opthamlomology History: Reports: Hx Contacts or Glasses Neurological History: Reports: Hx Dementia, Hx Seizures - 6mo to 10mo ago Psychiatric History: Reports: Other Psychiatric Issues/Disorders - dementia - Surgical History Surgery Procedure, Year, and Place: lumbar spine surgery. R hip surgery - Immunization History Date of Tetanus Vaccine: Unk Date of Influenza Vaccine: Unk Infectious Disease History: Yes Infectious Disease History: Denies: History Other Infectious Disease, Traveled Outside the [place] in Last 30 Days - Family History Known Family History: Positive: Hypertension, Diabetes - Social History Occupation: Retired Lives: At The [facility] Alcohol Use: None Substance Use Type: Reports: None Smoking Status (MU): Former Smoker Review of Systems Constitutional: Negative Negative: Fever, Chills Eyes: Negative ENT: Negative Cardiovascular: Negative Negative: Palpitations, Chest Pain Respiratory: Negative Negative: Shortness Of Breath, Cough Gastrointestinal: Negative Negative: Abdominal Pain, Vomiting, Diarrhea, Nausea Genitourinary: Negative Musculoskeletal: Negative Skin: Negative Neurological: Negative Negative: Weakness, Paresthesia, Numbness, Syncope, Slurred Speech Psychological: Normal All Other Systems Reviewed And Are Negative: Yes Physical Exam Triage Information Reviewed: Yes Vital Signs On Initial Exam: Initial Vitals Temp Pulse Resp BP Pulse Ox 97.9 F 82 16 145/72 95 12/03/17 14:04 12/03/17 14:04 12/03/17 14:04 12/03/17 14:04 12/03/17 14:04 Vital Signs Reviewed: Yes Appearance: Positive: Well-Appearing - Patient lying in bed in no acute distress. Pleasantly confused. Talkative. Skin: Positive: Warm, Dry Head/Face: Positive: Normal Head/Face Inspection Eyes: Positive: Normal Neck: Positive: Supple Respiratory/Lung Sounds: Positive: Clear to Auscultation, Breath Sounds Present Cardiovascular: Positive: Normal, RRR Abdomen Description: Positive: Nontender Musculoskeletal: Positive: Normal, Other - Moving bilateral upper and lower extremities without pain or difficulty. No midline back tenderness. Neurological: Positive: Sensory/Motor Intact, CN Intact II-III. Negative: Alert , Oriented to Person Place, Time - Patient is not oriented to place or time. Is oriented to self. Diagnostics - Vital Signs Vital Signs Temp Pulse Resp BP Pulse Ox 12/03/17 17:56 0 F 0 18 00/00 0 12/03/17 17:00 80 87 12/03/17 16:13 78 164/69 91 12/03/17 16:00 85 94 12/03/17 15:43 78 153/72 88 12/03/17 15:13 75 160/78 90 12/03/17 15:08 77 156/70 89 12/03/17 15:07 80 91 12/03/17 14:13 76 145/72 95 12/03/17 14:10 81 93 12/03/17 14:04 97.9 F 82 16 145/72 95 - Laboratory Lab Results: Lab Results 12/03/17 12/03/17 12/03/17 Range/Units 14:36 14:36 16:11 WBC 9.2 (3.5-10.8) 10^3/ul RBC 4.48 (4.0-5.4) 10^6/ul Hgb 13.8 (12.0-16.0) g/dl Hct 41 (35-47) % MCV 91 (80-97) fL MCH 31 (27-31) pg MCHC 34 (31-36) g/dl RDW 14 (10.5-15) % Plt Count 240 (150-450) 10^3/ul MPV 9.5 (7.4-10.4) um3 Neut % (Auto) 65.7 (38-83) % Lymph % (Auto) 25.1 (25-47) % [place] % (Auto) 7.2 H (0-7) % Eos % (Auto) 0.9 (0-6) % Baso % (Auto) 1.1 (0-2) % Absolute Neuts (auto) 6.0 (1.5-7.7) 10^3/ul Absolute Lymphs (auto) 2.3 (1.0-4.8) 10^3/ul Absolute Monos (auto) 0.7 (0-0.8) 10^3/ul Absolute Eos (auto) 0.1 (0-0.6) 10^3/ul Absolute Basos (auto) 0.1 (0-0.2) 10^3/ul Absolute Nucleated RBC 0 10^3/ul Nucleated RBC % 0 Sodium 138 L (139-145) mmol/L Potassium 3.4 L (3.5-5.0) mmol/L Chloride 100 L (101-111) mmol/L Carbon Dioxide 25 (22-32) mmol/L Anion Gap 13 H (2-11) mmol/L BUN 15 (6-24) mg/dL Creatinine 0.78 (0.51-0.95) mg/dL Est GFR ( Amer) 92.8 (>60) Est GFR (Non-Af Amer) 72.2 (>60) BUN/Creatinine Ratio 19.2 (8-20) Glucose 249 H (70-100) mg/dL Calcium 9.4 (8.6-10.3) mg/dL Total Bilirubin 0.60 (0.2-1.0) mg/dL AST 17 (13-39) U/L ALT 19 (7-52) U/L Alkaline Phosphatase 64 (34-104) U/L Total Protein 7.1 (6.4-8.9) g/dL Albumin 4.0 (3.2-5.2) g/dL Globulin 3.1 (2-4) g/dL Albumin/Globulin Ratio 1.3 (1-3) Urine Color Yellow Urine Appearance Cloudy Urine pH 6.0 (5-9) Ur Specific [place] 1.013 (1.010-1.030) Urine Protein Negative (Negative) Urine Ketones Negative (Negative) Urine Blood Negative (Negative) Urine Nitrate Negative (Negative) Urine Bilirubin Negative (Negative) Urine Urobilinogen Negative (Negative) Ur Leukocyte Esterase Negative (Negative) Urine Glucose 2+(150 mg/dl) A (Negative) Urine Ascorbic Acid * A (Negative) Result Diagrams: 12/03/17 14:36 12/03/17 14:36 Lab Statement: Any lab studies that have been ordered have been reviewed, and results considered in the medical decision making process. Complex Multi-Symp Course/Dx Course Of Treatment: Patient presenting to the ER for evaluation after a fall. She is afebrile with stable vital signs. In the ER patient has no complaints or evidence of trauma. Basic workup was obtained including head CT. Labs are unremarkable. Head CT shows chronic findings without acute change, reading per radiology. Urinalysis negative for infection. Patient's daughter is now present in the emergency department and states that her mother is at her baseline. Will discharge back to snf. Close follow-up with PCP and return to the ER if symptoms change or worsen. - Diagnoses Provider Diagnoses: Fall Discharge - Sign-Out/Discharge Documenting (check all that apply): Discharge/Admit/Transfer - Discharge Plan Condition: Good Disposition: HOME Patient Education Materials: Fall Prevention (ED) Referrals: Rosina Keating MD [Primary Care Provider] - Additional Instructions: Schedule a follow up with PCP Return to ER if symptoms change or worsen - Billing Disposition and Condition Condition: GOOD Disposition: HOME
== END 2017-12-03 17:56 | disposition home or self-care (01) ==
LOC: ED 14:01
DX: Z91.81 History of falling (principal); F03.90 Unspecified dementia, unspecified severity, without behavioral disturbance, psychotic disturbance, mood disturbance, and anxiety; Z87.891 Personal history of nicotine dependence
CPT/HCPCS: 36415; 70450; 80053; 81003; 85025; 99282

== ENCOUNTER 2017-12-25 10:38 | Emergency (ER) | payer MEDICARE ==
--- NOTE | 2017-12-25 11:43 | RAD ---
HISTORY: Fall, question of head trauma COMPARISONS: Head CT dated December 03, 2017 TECHNIQUE: Multiple contiguous axial CT scans were obtained of the head without intravenous contrast. FINDINGS: HEMORRHAGE/INFARCT: There is no hemorrhage or acute infarct. MASSES/SHIFT: There is no mass or shift. EXTRA-AXIAL SPACES: There are no extra-axial fluid collections. SULCI AND VENTRICLES: There is diffuse and proportional enlargement of the sulci and ventricles. CEREBRUM: There is hypoattenuation of the periventricular and subcortical white matter. BRAINSTEM: There are no focal parenchymal abnormalities. CEREBELLUM: There are no focal parenchymal abnormalities. VESSELS: The vessels are grossly normal. PARANASAL SINUSES: The paranasal sinuses are clear. ORBITS: The orbits are unremarkable. BONES AND SOFT TISSUE: No bone or soft tissue abnormalities are noted. OTHER: None IMPRESSION: NO ACUTE INTRACRANIAL PATHOLOGY. DIFFUSE INVOLUTIONAL CHANGE WITH CHRONIC SMALL VESSEL ISCHEMIC CHANGES.
--- NOTE | 2017-12-25 11:44 | RAD ---
HISTORY: Fall, question head trauma COMPARISONS: None TECHNIQUE: Multiple contiguous axial CT scans were obtained of the cervical spine without intravenous contrast, with coronal and sagittal multiplanar reformations. FINDINGS: BRAIN: The visualized brain is unremarkable CENTRAL CANAL: Evaluation of the central canal is limited on CT technique; however, there is no obvious canalicular mass or epidural hemorrhage. ALIGNMENT: There is straightening of the cervical lordosis. VERTEBRAL BODIES: There is diffuse osteopenia. There is multilevel anterolateral marginal osteophyte formation. JOINTS: There is diffuse uncovertebral and facet osteoarthritis. There is osteoarthritis of the atlantoaxial articulation. MUSCULATURE: Unremarkable INTERVERTEBRAL DISCS: There is diffuse loss of intervertebral disc height. AXIAL IMAGES: C2-C3: There is no osseous neural foraminal narrowing or central canal stenosis. C3-C4: There is bilateral uncovertebral and facet hypertrophy. There is severe right and moderate left neural foraminal narrowing. There is mild narrowing of the central canal. C4-C5: There is bilateral uncovertebral facet hypertrophy. There is moderate bilateral neural foraminal narrowing. There is mild narrowing of the central canal. C5-C6: There is no osseous neural foraminal narrowing or central canal stenosis. C6-C7: There is no osseous neural foraminal narrowing or central canal stenosis. C7-T1: There is no osseous neural foraminal narrowing or central canal stenosis. SOFT TISSUES: There is asymmetric effacement of the left piriform sinus which appears to BE due to mesial subcortical deviation of the left carotid artery. The carotid bifurcations are calcified.. OTHER: None. IMPRESSION: 1. OSTEOPENIA. 2. DEGENERATIVE DISC DISEASE AND OSTEOARTHRITIS. 3. NO ACUTE OSSEOUS INJURY TO THE CERVICAL SPINE.
--- NOTE | 2017-12-25 12:09 | ED ---
Di Purdy Gabriel, scribed for Ángel Suero MD on 12/25/17 at 1054 . Head Injury - HPI Summary HPI Summary: This patient is a 72 year old F BIBA to [facility] accompanied by a [employer] employee, the patient was found in the dining room s/p fall that occurred this morning. She had just had eaten breakfast and feel backwards and hit the left side of her head. The patient rates the pain 3/10 in severity. The majority was dictated by the staff and they deny LOC. Hx dementia - History Of Current Complaint Stated Complaint: FALL Hx Obtained From: Patient, Family/Lab Scientist Mechanism Of Injury: Fall From A Standing Position Onset/Duration: Started Hours Ago, Still Present Onset of Pain: Immediate Severity Currently: Mild Severity Initially: Mild Pain Intensity: 3 Pain Scale Used: 0-10 Numeric - 3 Location of Head Injury: Occipital Associated Signs And Symptoms: Negative - LOC - Allergies/Home Medications Allergies/Adverse Reactions: Allergies Allergy/AdvReac Type Severity Reaction Status Date / Time Penicillins Allergy Unknown Verified 12/25/17 11:31 Reaction Details PMH/Surg Hx/FS Hx/Imm Hx Endocrine/Hematology History: Reports: Hx Diabetes - diet controlled Cardiovascular History: Reports: Hx Hypertension Comment Only: Other Cardiovascular Problems/Disorders - 2 cardiac stents in 2006 Respiratory History: Reports: Hx Pneumonia - 43 yrs ago and 2015, Hx Sleep Apnea - 50 yrs ago, noncompliant GI History: Comment Only: Other GI Disorders - some urgency, loose stools History: Denies: Hx Renal Disease Musculoskeletal History: Reports: Hx Arthritis, Hx Back Problems Denies: Hx Osteoporosis Sensory History: Reports: Hx Contacts or Glasses Denies: Hx Hearing Aid Opthamlomology History: Reports: Hx Contacts or Glasses Neurological History: Reports: Hx Dementia, Hx Seizures - 6mo to 10mo ago Psychiatric History: Reports: Other Psychiatric Issues/Disorders - dementia - Surgical History Surgery Procedure, Year, and Place: lumbar spine surgery. R hip surgery - Immunization History Date of Tetanus Vaccine: Unk Date of Influenza Vaccine: Unk Infectious Disease History: Denies: History Other Infectious Disease - Family History Known Family History: Positive: Hypertension, Diabetes - Social History Alcohol Use: None Substance Use Type: Reports: None Smoking Status (MU): Former Smoker Review of Systems Constitutional: Other - head trauma Negative: Fever Neurological: Negative - LOC All Other Systems Reviewed And Are Negative: Yes Physical Exam - Summary Physical Exam Summary: VITAL SIGNS: Reviewed. GENERAL: Patient is a well-developed and nourished female who is lying comfortable in the stretcher. Patient is not in any acute respiratory distress. HEAD AND FACE: No signs of trauma. No ecchymosis, hematomas or skull depressions. No sinus tenderness. EYES: PERRLA, EOMI x 2, No injected conjunctiva, no nystagmus. EARS: Hearing grossly intact. Ear canals and tympanic membranes are within normal limits. MOUTH: Oropharynx within normal limits. NECK: Supple, trachea is midline, no adenopathy, no JVD, no carotid bruit, no c- spine tenderness, neck with full ROM. CHEST: Symmetric, no tenderness at palpation LUNGS: Clear to auscultation bilaterally. No wheezing or crackles. CVS: Regular rate and rhythm, S1 and S2 present, no murmurs or gallops appreciated. ABDOMEN: Soft, non-tender. No signs of distention. No rebound no guarding, and no masses palpated. Bowel sounds are normal. EXTREMITIES: FROM in all major joints, no edema, no cyanosis or clubbing. NEURO: Alert and oriented x 3. No acute neurological deficits. Speech is normal and follows commands. Slightly demented SKIN: Dry and warm Triage Information Reviewed: Yes Vital Signs On Initial Exam: Initial Vitals Temp Pulse Resp BP Pulse Ox 98.1 F 72 16 151/74 95 12/25/17 11:00 12/25/17 11:00 12/25/17 11:00 12/25/17 11:12/25/17 11:00 Vital Signs Reviewed: Yes Diagnostics - Vital Signs Vital Signs Temp Pulse Resp BP Pulse Ox 12/25/17 11:00 98.1 F 72 16 151/74 95 - Laboratory Lab Statement: Any lab studies that have been ordered have been reviewed, and results considered in the medical decision making process. - CT CT Brain CT Interpretation Completed By: Radiologist - NO ACUTE INTRACRANIAL PATHOLOGY. DIFFUSE INVOLUTIONAL CHANGE WITH CHRONIC SMALL VESSEL ISCHEMIC CHANGES. ED physician has reviewed this radiology report. CT C-spine CT Interpretation Completed By: Radiologist - 1. OSTEOPENIA. 2. DEGENERATIVE DISC DISEASE AND OSTEOARTHRITIS. 3. NO ACUTE OSSEOUS INJURY TO THE CERVICAL SPINE. ED physician has reviewed this radiology report. Head Injury Course/Dx Assessment/Plan: Patient is a 72-year-old female who presents to the emergency room after she had an accidental fall after she had breakfast. The patients caregiver reports that she fell backwards and they think the patient hit her head. Patient has history of dementia but she has no complaints. Physical exam reveals no acute findings. Head CT impression: No acute intracranial pathology. Diffuse involutional changes with chronic small vessel ischemia. C- spine CT impression: Osteopenia, degenerative disc disease and gastroenteritis. Since that those results were negative as the patient has no other symptoms the patient will be discharged home with follow-up with primary care physician. I discussed all findings and positions with the patient and the patients caregiver and she will be discharged back to the alf. Patient is hemodynamically stable alert and she continues to be at her base line - Diagnoses Differential Diagnosis/HQI/PQRI: Concussion Without LOC, Contusion, Intracranial Bleed Provider Diagnoses: Head contusion, Accidental fall Discharge - Sign-Out/Discharge Documenting (check all that apply): Discharge/Admit/Transfer - Discharge Plan Condition: Stable Disposition: HOME Patient Education Materials: Head Injury (ED) Referrals: Rosina Keating MD [Primary Care Provider] - 3 Days Additional Instructions: RETURN TO THE EMERGENCY DEPARTMENT FOR CHANGING OR WORSENING SYMPTOMS - Billing Disposition and Condition Condition: STABLE Disposition: HOME The documentation as recorded by the Di avalos Gabriel accurately reflects the service I personally performed and the decisions made by me, Ángel Suero MD.
[2017-12-25 13:21] VITALS: BP 182/85
== END 2017-12-25 12:57 | disposition home or self-care (01) ==
LOC: ED 10:38
DX: S00.93XA Contusion of unspecified part of head, initial encounter (principal); W18.30XA Fall on same level, unspecified, initial encounter; Y93.9 Activity, unspecified; Y92.128 Other place in nursing home as the place of occurrence of the external cause; M85.88 Other specified disorders of bone density and structure, other site; M50.30 Other cervical disc degeneration, unspecified cervical region; M47.812 Spondylosis without myelopathy or radiculopathy, cervical region; E11.9 Type 2 diabetes mellitus without complications; I10 Essential (primary) hypertension; F03.90 Unspecified dementia, unspecified severity, without behavioral disturbance, psychotic disturbance, mood disturbance, and anxiety; Z88.0 Allergy status to penicillin; Z87.891 Personal history of nicotine dependence
CPT/HCPCS: 70450; 72125; 99282

== ENCOUNTER 2017-12-30 14:51 | Emergency (ER) | payer MEDICARE ==
[2017-12-30 16:30] LABS: EGFR Non-African American 87.5 (>60); Uric Acid 4.6 mg/dL (2.3-6.6)
[2017-12-30 16:33] LABS: ABS Basophils 0.1 10^3/ul (0-0.2); ABS Eosinophils 0.1 10^3/ul (0-0.6); ABS Lymphocytes 2.2 10^3/ul (1.0-4.8); ABS Monocytes 0.7 10^3/ul (0-0.8); ABS Neutrophils 5.3 10^3/ul (1.5-7.7); ABS Nucleated RBC 0 10^3/ul; Eosinophil % 1.5 % (0-6); Hematocrit 41 % (35-47); Hemoglobin 13.8 g/dl (12.0-16.0); Lymphocyte % 26.4 % (25-47); Mean Corpuscular HGB Conc 34 g/dl (31-36); Mean Corpuscular Hemoglobin 31 pg (27-31); Mean Corpuscular Volume 91 fL (80-97); Mean Platelet Volume 10.1 um3 (7.4-10.4); Nucleated Red Blood Cells % 0.1; Platelet Count 236 10^3/ul (150-450); Red Blood Count 4.45 10^6/ul (4.0-5.4); Red Cell Distribution Width 13 % (10.5-15); White Blood Count 8.4 10^3/ul (3.5-10.8)
[2017-12-30 16:36] LABS: Urine Appearance Cloudy; Urine Blood Negative (Negative); Urine Color Yellow; Urine Ketones Negative (Negative); Urine Protein Negative (Negative); Urine Specific Gravity 1.018 (1.010-1.030); Urine Urobilinogen Negative (Negative)
--- NOTE | 2017-12-30 16:51 | RAD ---
INDICATION: RIGHT lower extremity edema. COMPARISON: April 28, 2017 TECHNIQUE: Ames scale, color Doppler, and spectral analysis of the deep veins of the RIGHT lower extremity. Vessel compression, phasicity, and augmentation assessed. REPORT: The RIGHT common femoral, great saphenous, profunda femoral, femoral, popliteal, peroneal, and posterior tibial veins are patent. Patency of the LEFT common femoral vein documented. IMPRESSION: No evidence for RIGHT lower extremity deep venous thrombosis.
[2017-12-30] MEDS ORDERED: Potassium Chlor TAB* 20 MEQ TAB.ER PO ONE (17:39)
[2017-12-30] MEDS ORDERED: Levofloxacin 750 MG IVPREMIX(* 750 MG/150 ML BAG IVPB ONE (17:41)
[2017-12-30] MEDS ORDERED: Sulfamethox/Trimethoprim DS 800/160* TAB PO ONE (17:44)
[2017-12-30 18:17] VITALS: BP 174/93
--- NOTE | 2017-12-30 21:01 | ED ---
Kalyan Purdy Rebecca, scribed for Ángel Suero MD on 12/30/17 at 1527 . Lower Extremity - HPI Summary HPI Summary: Pt is a 72 y/o F who presents to ED c/o acute on chronic edema. Daughter reports that she has had bilateral swollen legs and feet chronically, but they have been increasingly worse. Sx aggravated and alleviated by nothing. Daughter additionally notes R ankle stiffness and erythema. Denies CP. Dr. Keating (PCP) recommended that she come to the ED to be evaluated. - History of Current Complaint Chief Complaint: EDExtremityLower Stated Complaint: SWOLLEN STIFF LEGS Time Seen by Provider: 12/30/17 15:15 Hx Obtained From: Patient, Family/Cardiograph Operator - Daughter Onset/Duration: Still Present Severity Currently: Mild Pain Intensity: 3 Pain Scale Used: 0-10 Numeric Character Of Pain: Stiffness Associated Signs And Symptoms: Positive: Swelling, Redness Aggravating Factor(s): Nothing Alleviating Factor(s): Nothing - Allergies/Home Medications Allergies/Adverse Reactions: Allergies Allergy/AdvReac Type Severity Reaction Status Date / Time Penicillins Allergy Unknown Verified 12/30/17 14:57 Reaction Details PMH/Surg Hx/FS Hx/Imm Hx Endocrine/Hematology History: Reports: Hx Diabetes - diet controlled Cardiovascular History: Reports: Hx Hypertension Comment Only: Other Cardiovascular Problems/Disorders - 2 cardiac stents in 2006 Respiratory History: Reports: Hx Pneumonia - 43 yrs ago and 2015, Hx Sleep Apnea - 50 yrs ago, noncompliant GI History: Comment Only: Other GI Disorders - some urgency, loose stools History: Denies: Hx Renal Disease Musculoskeletal History: Reports: Hx Arthritis, Hx Back Problems Denies: Hx Osteoporosis Sensory History: Reports: Hx Contacts or Glasses Denies: Hx Hearing Aid Opthamlomology History: Reports: Hx Contacts or Glasses Neurological History: Reports: Hx Dementia, Hx Seizures - 6mo to 10mo ago Psychiatric History: Reports: Other Psychiatric Issues/Disorders - dementia - Surgical History Surgery Procedure, Year, and Place: lumbar spine surgery. R hip surgery - Immunization History Date of Tetanus Vaccine: Unk Date of Influenza Vaccine: Unk Infectious Disease History: No Infectious Disease History: Denies: History Other Infectious Disease, Traveled Outside the [place] in Last 30 Days - Family History Known Family History: Positive: Hypertension, Diabetes - Social History Alcohol Use: None Substance Use Type: Reports: None Smoking Status (MU): Former Smoker Review of Systems Negative: Fever Negative: Chest Pain Positive: Edema - Bilateral LE leg and ankle edema, Other - R ankle stiffness Positive: Other - R ankle erythema All Other Systems Reviewed And Are Negative: Yes Physical Exam - Summary Physical Exam Summary: VITAL SIGNS: Reviewed. GENERAL: ~Patient is a well-developed and nourished female who is lying comfortable in the stretcher. ~Patient is not in any acute respiratory distress. HEAD AND FACE: No signs of trauma. ~No ecchymosis, hematomas or skull depressions. No sinus tenderness. EYES: PERRLA, EOMI x 2, No injected conjunctiva, no nystagmus. EARS: Hearing grossly intact. Ear canals and tympanic membranes are within normal limits. MOUTH: Oropharynx within normal limits. NECK: Supple, trachea is midline, no adenopathy, no JVD, no carotid bruit, no c- spine tenderness, neck with full ROM. CHEST: Symmetric, no tenderness at palpation LUNGS: Clear to auscultation bilaterally. No wheezing or crackles. CVS: Regular rate and rhythm, S1 and S2 present, no murmurs or gallops appreciated. ABDOMEN: Soft, non-tender. No signs of distention. No rebound no guarding, and no masses palpated. Bowel sounds are normal. EXTREMITIES: FROM in all major joints, no cyanosis or clubbing. Bilateral LE edema, R greater than L, some erythema on the dorsal aspect of the right foot and ankle NEURO: Alert and oriented x 3. No acute neurological deficits. Speech is normal and follows commands. SKIN: Dry and warm Triage Information Reviewed: Yes Vital Signs On Initial Exam: Initial Vitals Temp Pulse Resp BP Pulse Ox 98.0 F 78 14 154/79 93 12/30/17 14:54 12/30/17 14:54 12/30/17 14:54 12/30/17 14:54 12/30/17 14:54 Vital Signs Reviewed: Yes Diagnostics - Vital Signs Vital Signs Temp Pulse Resp BP Pulse Ox 12/30/17 15:11 176/81 12/30/17 14:54 98.0 F 78 14 154/79 93 - Laboratory Lab Results: Lab Results 12/30/17 12/30/17 12/30/17 Range/Units 15:46 15:46 15:46 WBC 8.4 (3.5-10.8) 10^3/ul RBC 4.45 (4.0-5.4) 10^6/ul Hgb 13.8 (12.0-16.0) g/dl Hct 41 (35-47) % MCV 91 (80-97) fL MCH 31 (27-31) pg MCHC 34 (31-36) g/dl RDW 13 (10.5-15) % Plt Count 236 (150-450) 10^3/ul MPV 10.1 (7.4-10.4) um3 Neut % (Auto) 63.3 (38-83) % Lymph % (Auto) 26.4 (25-47) % [place] % (Auto) 7.8 H (0-7) % Eos % (Auto) 1.5 (0-6) % Baso % (Auto) 1.0 (0-2) % Absolute Neuts (auto) 5.3 (1.5-7.7) 10^3/ul Absolute Lymphs (auto) 2.2 (1.0-4.8) 10^3/ul Absolute Monos (auto) 0.7 (0-0.8) 10^3/ul Absolute Eos (auto) 0.1 (0-0.6) 10^3/ul Absolute Basos (auto) 0.1 (0-0.2) 10^3/ul Absolute Nucleated RBC 0 10^3/ul Nucleated RBC % 0.1 ESR 37 (0-40) mm/Hr Sodium 137 L (139-145) mmol/L Potassium 3.0 L (3.5-5.0) mmol/L Chloride 101 (101-111) mmol/L Carbon Dioxide 24 (22-32) mmol/L Anion Gap 12 H (2-11) mmol/L BUN 16 (6-24) mg/dL Creatinine 0.66 (0.51-0.95) mg/dL Est GFR ( Amer) 112.6 (>60) Est GFR (Non-Af Amer) 87.5 (>60) BUN/Creatinine Ratio 24.2 H (8-20) Glucose 231 H (70-100) mg/dL Lactic Acid 2.7 H* (0.5-2.0) mmol/L Uric Acid 4.6 (2.3-6.6) mg/dL Calcium 9.4 (8.6-10.3) mg/dL Total Bilirubin 0.50 (0.2-1.0) mg/dL AST 20 (13-39) U/L ALT 22 (7-52) U/L Alkaline Phosphatase 69 (34-104) U/L C-Reactive Protein 17.88 H (< 5.00) mg/L Total Protein 7.2 (6.4-8.9) g/dL Albumin 3.9 (3.2-5.2) g/dL Globulin 3.3 (2-4) g/dL Albumin/Globulin Ratio 1.2 (1-3) Urine Color Urine Appearance Urine pH (5-9) Ur Specific [place] (1.010-1.030) Urine Protein (Negative) Urine Ketones (Negative) Urine Blood (Negative) Urine Nitrate (Negative) Urine Bilirubin (Negative) Urine Urobilinogen (Negative) Ur Leukocyte Esterase (Negative) Urine Glucose (Negative) Urine Ascorbic Acid (Negative) 12/30/ Range/Units 16:19 WBC (3.5-10.8) 10^3/ul RBC (4.0-5.4) 10^6/ul Hgb (12.0-16.0) g/dl Hct (35-47) % MCV (80-97) fL MCH (27-31) pg MCHC (31-36) g/dl RDW (10.5-15) % Plt Count (150-450) 10^3/ul MPV (7.4-10.4) um3 Neut % (Auto) (38-83) % Lymph % (Auto) (25-47) % [place] % (Auto) (0-7) % Eos % (Auto) (0-6) % Baso % (Auto) (0-2) % Absolute Neuts (auto) (1.5-7.7) 10^3/ul Absolute Lymphs (auto) (1.0-4.8) 10^3/ul Absolute Monos (auto) (0-0.8) 10^3/ul Absolute Eos (auto) (0-0.6) 10^3/ul Absolute Basos (auto) (0-0.2) 10^3/ul Absolute Nucleated RBC 10^3/ul Nucleated RBC % ESR (0-40) mm/Hr Sodium (139-145) mmol/L Potassium (3.5-5.0) mmol/L Chloride (101-111) mmol/L Carbon Dioxide (22-32) mmol/L Anion Gap (2-11) mmol/L BUN (6-24) mg/dL Creatinine (0.51-0.95) mg/dL Est GFR ( Amer) (>60) Est GFR (Non-Af Amer) (>60) BUN/Creatinine Ratio (8-20) Glucose (70-100) mg/dL Lactic Acid (0.5-2.0) mmol/L Uric Acid (2.3-6.6) mg/dL Calcium (8.6-10.3) mg/dL Total Bilirubin (0.2-1.0) mg/dL AST (13-39) U/L ALT (7-52) U/L Alkaline Phosphatase (34-104) U/L C-Reactive Protein (< 5.00) mg/L Total Protein (6.4-8.9) g/dL Albumin (3.2-5.2) g/dL Globulin (2-4) g/dL Albumin/Globulin Ratio (1-3) Urine Color Yellow Urine Appearance Cloudy Urine pH 6.0 (5-9) Ur Specific [place] 1.018 (1.010-1.030) Urine Protein Negative (Negative) Urine Ketones Negative (Negative) Urine Blood Negative (Negative) Urine Nitrate Negative (Negative) Urine Bilirubin Negative (Negative) Urine Urobilinogen Negative (Negative) Ur Leukocyte Esterase Negative (Negative) Urine Glucose 1+(50 mg/dl) A (Negative) Urine Ascorbic Acid * A (Negative) Result Diagrams: 12/30/17 15:46 12/30/17 15:46 Lab Statement: Any lab studies that have been ordered have been reviewed, and results considered in the medical decision making process. - Ultrasound No standard instances Ultrasound Interpretation: No Acute Changes - Doppler: No evidence for RIGHT lower extremity deep venous thrombosis. ED physician reviewed this US report. Ultrasound Interpretation Completed By: Radiologist Lower Extremity Course/Dx - Course Assessment/Plan: This patient is a 72-year-old female who presents to the emergency room but her daughter complaining that the patient is having bilateral lower extremity edema the right worse than the left. The patient was in the primary care physician and they recommended to come to the emergency Department to rule out a DVT. Test results without any significant abnormality except for sodium of 137, potassium of 3, glucose random of 231, lactic acid of 2.7. C-reactive protein was 17.8. Urinalysis is negative for UTI. Patient was given potassium chloride for hypokalemia and also she was given Levaquin right LE cellulitis. Right lower extremity ultrasound impression: No DVT. I discussed all the findings and test results with the patient. Patient was instructed to return to the emergency room immediately if any of the symptoms return or worsens. Plan of care was discussed with the patient and understands and agrees. All questions were answered at patient satisfaction. There were no further complaints or concerns. Lung exam before discharge: CTA B/L. Good air exchange. No wheezing or crackles heard. CVS: S1 and S2 present. No murmurs appreciated. Patient is alert and oriented x 3. Patient is hemodynamically stable. Patient will be discharged home with follow up PCP in the next 2-3 days - Diagnoses Provider Diagnoses: Cellulitis Discharge - Sign-Out/Discharge Documenting (check all that apply): Discharge/Admit/Transfer - Discharge - Discharge Plan Condition: Stable Disposition: HOME Prescriptions: Sulfamethox/Trimethoprim DS* [Bactrim DS 800/160 TAB*] 1 tab PO BID #20 tab Patient Education Materials: Cellulitis (ED) Referrals: Rosina Keating MD [Primary Care Provider] - 3 Days Additional Instructions: RETURN TO ED FOR ANY NEW OR WORSENING SYMPTOMS. - Billing Disposition and Condition Condition: STABLE Disposition: HOME The documentation as recorded by the Kalyan avalos Rebecca accurately reflects the service I personally performed and the decisions made by , Ángel Suero MD.
== END 2017-12-30 18:16 | disposition home or self-care (01) ==
LOC: ED 14:51
DX: L03.90 Cellulitis, unspecified (principal); R60.9 Edema, unspecified; Z87.891 Personal history of nicotine dependence; Z86.79 Personal history of other diseases of the circulatory system
CPT/HCPCS: 36415; 80053; 81003; 83605; 84550; 85025; 85652; 86140; 87040; 99283; A9270-GY

== ENCOUNTER 2018-01-07 01:19 | Emergency (ER) | payer MEDICARE ==
[2018-01-07 02:47] VITALS: BP 129/76
--- NOTE | 2018-01-18 01:10 | ED ---
Kalyan Purdy Rebecca, scribed for Brennon Zhang MD on 01/07/18 at 0206 . Head Injury - HPI Summary HPI Summary: Pt is a 72 y/o F BIBA from [facility] accompanied by her daughter who presents to ED s/p head injury. The pt fell out of bed, unwitnessed, hitting her left eye. She was found by staff sitting on the ground with a bruise on the left eye. Daughter suspects that she rolled out of bed and hit her head on the nightstand, though she is unsure. Negative LOC. On triage, there was no pain noted. Daughter states that she has a low pain tolerance, so if the pt was in pain, she states it would be obvious. Daughter additionally notes 4 episodes of "tremors" for which she has had a neurological workup in the past. Takes ASA daily and is not on any other blood thinners. PMHx dementia - confused at baseline and she is at baseline currently per daughter. - History Of Current Complaint Chief Complaint: EDHeadInjury Stated Complaint: FALL/HEAD INJURY Time Seen by Provider: 01/07/18 02:00 Hx Obtained From: Family/Digital Asset Coordinator - Daughter Mechanism Of Injury: Fall From Height Of: - Bed Onset/Duration: Traumatic Severity Currently: None Pain Intensity: 0 Pain Scale Used: 0-10 Numeric Location: Discrete At: - Left eye Associated Signs And Symptoms: Other: - episodes of "tremors" - Allergies/Home Medications Allergies/Adverse Reactions: Allergies Allergy/AdvReac Type Severity Reaction Status Date / Time Penicillins Allergy Unknown Verified 01/07/18 01:49 Reaction Details Home Medications: Home Medications Melatonin 5 mg PO BEDTIME 01/07/18 [History Confirmed 01/07/18] Potassium Chloride 40 meq PO DAILY 01/07/18 [History Confirmed 01/07/18] PMH/Surg Hx/FS Hx/Imm Hx Endocrine/Hematology History: Reports: Hx Diabetes - diet controlled Cardiovascular History: Reports: Hx Hypertension Comment Only: Other Cardiovascular Problems/Disorders - 2 cardiac stents in 2006 Respiratory History: Reports: Hx Pneumonia - 43 yrs ago and 2015, Hx Sleep Apnea - 50 yrs ago, noncompliant GI History: Comment Only: Other GI Disorders - some urgency, loose stools History: Denies: Hx Renal Disease Musculoskeletal History: Reports: Hx Arthritis, Hx Back Problems Denies: Hx Osteoporosis Sensory History: Reports: Hx Contacts or Glasses Denies: Hx Hearing Aid Opthamlomology History: Reports: Hx Contacts or Glasses Neurological History: Reports: Hx Dementia, Hx Seizures - 6mo to 10mo ago Psychiatric History: Reports: Other Psychiatric Issues/Disorders - dementia - Surgical History Surgery Procedure, Year, and Place: lumbar spine surgery. R hip surgery - Immunization History Date of Tetanus Vaccine: Unk Date of Influenza Vaccine: Unk Infectious Disease History: Unable to Obtain/Confirm Infectious Disease History: Denies: History Other Infectious Disease, Traveled Outside the [place] in Last 30 Days - Family History Known Family History: Positive: Hypertension, Diabetes - Social History Alcohol Use: None Substance Use Type: Reports: None Smoking Status (MU): Former Smoker Review of Systems Negative: Fever Positive: Bruising - Left eye Neurological: Other - Intermittent tremors, confusion at baseline; NEGATIVE: LOC All Other Systems Reviewed And Are Negative: Yes Physical Exam - Summary Physical Exam Summary: Appearance: Well-appearing, Well-nourished, lying in bed comfortably Skin: Warm, dry, no obvious rash Eyes: sclera anicteric, no conjunctival pallor, no hyphemas, small inferior periorbital contusion ENT: mucous membranes moist, pharynx appears normal Neck: Supple, nontender, FROM Respiratory: Clear to auscultation, no signs of respiratory distress Cardiovascular: Normal S1, S2. No murmurs. Normal distal pulses in tibial and radial bilaterally. Abdomen: Soft, nontender, normal active bowel sounds present Musculoskeletal: Normal, Strength/ROM Intact, no tenderness of the arms and legsg Neurological: maintaining her baseline of orientation and mentation, awake and alert, speech is fluent and appropriate Psychiatric: affect is normal, does not appear anxious or depressed Triage Information Reviewed: Yes Vital Signs On Initial Exam: Initial Vitals Temp Pulse Resp BP Pulse Ox 98.0 F 74 20 178/80 91 01/07/18 01:35 01/07/18 01:35 01/07/18 01:35 01/07/18 01:35 01/07/18 01:35 Vital Signs Reviewed: Yes Diagnostics - Vital Signs Vital Signs Temp Pulse Resp BP Pulse Ox 01/07/18 01:35 98.0 F 74 20 178/80 91 - Laboratory Lab Statement: Any lab studies that have been ordered have been reviewed, and results considered in the medical decision making process. Head Injury Course/Dx Assessment/Plan: This is an elderly, 72-year-old woman with a history of dementia who suffered an apparent fall out of bed. There is no history of loss of consciousness, and the patient is mentating at her baseline. The only sign of her injury is a small amount of bruising under the left eye. She does not take any potent anticoagulants. I feel it would be reasonable to defer imaging tonight. I did speak with her daughter about this, indicating that if she seemed to worsen over the next few days she would have to come back here and have the scan then. Her daughter understands and is unable to this watchful waiting approach. - Diagnoses Provider Diagnoses: Closed head injury Discharge - Sign-Out/Discharge Documenting (check all that apply): Discharge/Admit/Transfer - Discharge Plan Condition: Good Disposition: HOME Patient Education Materials: Head Injury (ED) Referrals: Rosina Keating MD [Primary Care Provider] - - Billing Disposition and Condition Condition: GOOD Disposition: HOME The documentation as recorded by the Kalyan avalos Rebecca accurately reflects the service I personally performed and the decisions made by me, Brennon Zhang MD.
== END 2018-01-07 02:47 | disposition home or self-care (01) ==
LOC: ED 01:19
DX: S09.90XA Unspecified injury of head, initial encounter (principal); W06.XXXA Fall from bed, initial encounter; Y92.9 Unspecified place or not applicable; F03.90 Unspecified dementia, unspecified severity, without behavioral disturbance, psychotic disturbance, mood disturbance, and anxiety; Z87.891 Personal history of nicotine dependence; Z88.0 Allergy status to penicillin
CPT/HCPCS: 99282

== ENCOUNTER → 2018-02-25 17:06 | Emergency (ER) | payer MEDICARE ==
[~2018-02-25 17:06] MED LIST: NS 0.9% 1000 ML* 1,000 ML IV ONE
--- NOTE | 2018-02-25 18:26 | ED ---
GI/ HPI - HPI Summary HPI Summary: This is scribe Erin Akbar documenting for attending Ángel Suero MD. Pt is a 72 y/o female BIBA who presents to [facility] c/o rectal bleeding since 7:00 today. As per [facility] nursing staff, she began to have small amounts of BMs with blood clots and dark red blood. Pt reported abdominal pain earlier, but denies any currently. She is not on blood thinners. Pt is a level 5 caveat due to dementia. PMHx HTN and HLD. - History of Current Complaint Time Seen by Provider: 02/25/18 17:18 Stated Complaint: RECTAL BLEEDING Hx Obtained From: Family/Wagon Driver Salesperson - [facility], EMS, Medical Records Hx From Patient Unobtainable Due To: Dementia - Level 5 caveat Onset/Duration: Started Hours Ago - 7:00, Still Present Pain Intensity: 0 Location of Pain: None Associated Signs and Symptoms: Positive: Blood w/Stool, Abdominal Pain - Resolved Aggravating Factor(s): Nothing Alleviating Factor(s): Nothing - Additional Pertinent History Primary Care Physician: NIYAH - Allergy/Home Medications Allergies/Adverse Reactions: Allergies Allergy/AdvReac Type Severity Reaction Status Date / Time Penicillins Allergy Unknown Verified 02/25/18 18:08 Reaction Details PMH/Surg Hx/FS Hx/Imm Hx Endocrine/Hematology History: Reports: Hx Diabetes - diet controlled Cardiovascular History: Reports: Hx Hypercholesterolemia, Hx Hypertension Comment Only: Other Cardiovascular Problems/Disorders - 2 cardiac stents in 2006 Respiratory History: Reports: Hx Pneumonia - 43 yrs ago and 2015, Hx Sleep Apnea - 50 yrs ago, noncompliant GI History: Comment Only: Other GI Disorders - some urgency, loose stools History: Denies: Hx Renal Disease Musculoskeletal History: Reports: Hx Arthritis, Hx Back Problems Denies: Hx Osteoporosis Sensory History: Reports: Hx Contacts or Glasses Denies: Hx Hearing Aid Opthamlomology History: Reports: Hx Contacts or Glasses Neurological History: Reports: Hx Dementia, Hx Seizures - 6mo to 10mo ago - Surgical History Surgery Procedure, Year, and Place: lumbar spine surgery. R hip surgery - Immunization History Date of Tetanus Vaccine: Unk Date of Influenza Vaccine: Unk Infectious Disease History: Unable to Obtain/Confirm Infectious Disease History: Denies: History Other Infectious Disease, Traveled Outside the [place] in Last 30 Days - Family History Known Family History: Positive: Hypertension, Diabetes - Social History Alcohol Use: None Substance Use Type: Reports: None Smoking Status (MU): Former Smoker Review of Systems Negative: Fever Positive: Other - Dark red stool. Negative: Abdominal Pain - Resolved All Other Systems Reviewed And Are Negative: Yes Physical Exam - Summary Physical Exam Summary: VITAL SIGNS: Reviewed. GENERAL: Patient is a well-developed and nourished FEMALE who is lying comfortable in the stretcher. Patient is not in any acute respiratory distress. HEAD AND FACE: No signs of trauma. No ecchymosis, hematomas or skull depressions. No sinus tenderness. EYES: PERRLA, EOMI x 2, No injected conjunctiva, no nystagmus. EARS: Hearing grossly intact. Ear canals and tympanic membranes are within normal limits. MOUTH: Oropharynx within normal limits. NECK: Supple, trachea is midline, no adenopathy, no JVD, no carotid bruit, no c- spine tenderness, neck with full ROM. CHEST: Symmetric, no tenderness at palpation LUNGS: Clear to auscultation bilaterally. No wheezing or crackles. CVS: Regular rate and rhythm, S1 and S2 present, no murmurs or gallops appreciated. ABDOMEN: Soft, non-tender. No signs of distention. No rebound no guarding, and no masses palpated. Bowel sounds are normal. EXTREMITIES: FROM in all major joints, no edema, no cyanosis or clubbing. NEURO: Alert but not oriented. No acute neurological deficits. Speech is normal and follows commands. SKIN: Dry and warm RECTAL: Normal sphincter tone. No gross blood or melena. Triage Information Reviewed: Yes Vital Signs On Initial Exam: Initial Vitals Temp Pulse Resp BP Pulse Ox 98.3 F 74 20 175/125 94 02/25/18 17:50 02/25/18 17:50 02/25/18 17:50 02/25/18 17:50 02/25/18 17:50 Vital Signs Reviewed: Yes Diagnostics - Vital Signs Vital Signs Temp Pulse Resp BP Pulse Ox 02/25/18 18:04 74 19 93 02/25/18 17:53 74 93 02/25/18 17:50 98.3 F 74 20 175/125 94 - Laboratory Result Diagrams: 02/25/18 18:38 02/25/18 18:38 Lab Statement: Any lab studies that have been ordered have been reviewed, and results considered in the medical decision making process. - Radiology CXR Xray Interpretation: Positive (See Comments) - 18:11 Stigmata of chronic obstructive pulmonary disease. Probable pulmonary vascular congestion and mild interstitial edema. ED physician reviewed radiology report. Radiology Interpretation Completed By: Radiologist Abd XR Xray Interpretation: No Acute Changes - 18:11 No acute abdominal pelvic visceral pathologic process evident. ED physician reviewed radiology report. Radiology Interpretation Completed By: Lauren HINES Course/Dx - Course Assessment/Plan: This patient is a 72-year-old female who was transferred from the residential dementia unit with a chief complaint of rectal bleeding. I was unable to get any information for the patient. The patient is demented. Rectal exam did not show any gross blood or melena. The patient is guaiac negative. Blood test results without any significant abnormality. Hemoglobin is 14.7 hematocrit is 44, BUNs 17 and creatinine is 0.62. Since there is no findings of a GI bleed the patient will be discharged back to her [facility] for further workup and management. The patient and caregiver was instructed to bring the patient back in the patient develops any other bleeding or complaint. She understands and agrees. The patient is hemodynamically stable alert but not oriented. - Diagnoses Provider Diagnoses: GI bleed Discharge - Sign-Out/Discharge Documenting (check all that apply): Patient Departure - Discharge - Discharge Plan Condition: Stable Disposition: HOME Patient Education Materials: Gastrointestinal Bleeding (ED) Referrals: Rosina Keating MD [Primary Care Provider] - 3 Days Additional Instructions: RETURN TO THE ED FOR ANY WORSENING OR NEW SYMPTOMS.
[2018-02-25 18:42] VITALS: BP 162/80
[2018-02-25 18:44] LABS: ABS Basophils 0.1 10^3/ul (0-0.2); ABS Eosinophils 0.1 10^3/ul (0-0.6); ABS Lymphocytes 2.4 10^3/ul (1.0-4.8); ABS Monocytes 0.5 10^3/ul (0-0.8); ABS Neutrophils 4.9 10^3/ul (1.5-7.7); ABS Nucleated RBC 0 10^3/ul; Eosinophil % 1.4 % (0-6); Hematocrit 44 % (35-47); Hemoglobin 14.7 g/dl (12.0-16.0); Lymphocyte % 29.4 % (25-47); Mean Corpuscular HGB Conc 34 g/dl (31-36); Mean Corpuscular Hemoglobin 30 pg (27-31); Mean Corpuscular Volume 90 fL (80-97); Mean Platelet Volume 9.4 um3 (7.4-10.4); Nucleated Red Blood Cells % 0.1; Platelet Count 264 10^3/ul (150-450); Red Blood Count 4.86 10^6/ul (4.00-5.40); Red Cell Distribution Width 14 % (10.5-15); White Blood Count 8.1 10^3/ul (3.5-10.8)
[2018-02-25 18:52] LABS: INR 0.85 (0.77-1.02)
[2018-02-25 19:00] LABS: EGFR Non-African American 94.1 (>60)
--- NOTE | 2018-02-25 19:37 | RAD ---
Indication: GI bleed. Comparison: No relevant prior exams available on the [facility] PACS for comparison. Technique: May 04, 2017 Report: Elevated lung volumes and both diffuse mild prominence of the interstitial markings and patchy rarefaction of the mid to upper lung zone interstitial markings. No focal pulmonary lesion, compelling alveolar consolidation, pleural effusion, pneumothorax. Significant cardiomegaly. Prominent mildly ill-defined central pulmonary vasculature. Unremarkable mediastinal contours. Negative for free air beneath the diaphragm. IMPRESSION: #. Stigmata of chronic obstructive pulmonary disease. #. Probable pulmonary vascular congestion and mild interstitial edema.
--- NOTE | 2018-02-25 19:39 | RAD ---
Indication: GI bleed. Comparison: Upright abdomen radiograph of the same date. April 28, 2017 CT. Technique: Supine and LEFT lateral decubitus views of the abdomen. Report: Negative for free air. Unremarkable bowel gas pattern. Moderate stool in the RIGHT colon. No suspicious calcifications or mass effect. Gamma nail internal fixation hardware at the RIGHT hip. Advanced bilateral hip joint osteoarthritis. IMPRESSION: #. No acute abdominal pelvic visceral pathologic process evident.
== END | disposition home or self-care (01) ==
LOC: ED 17:06
DX: K92.2 Gastrointestinal hemorrhage, unspecified (principal); J44.9 Chronic obstructive pulmonary disease, unspecified; Z88.0 Allergy status to penicillin; Z87.891 Personal history of nicotine dependence
CPT/HCPCS: 36415; 71045; 74019; 80053; 82272; 83690; 83880; 85025; 85610; 85730; 86140; 96360; 99283

== ENCOUNTER → 2018-04-06 09:31 | Emergency (ER) | payer MEDICARE ==
[~2018-04-06 09:31] MED LIST changes: +Lidocaine PATCH 5%* 1 PATCH TRANSDERM ONE; +Lidocaine PATCH 5%* 1 PATCH TRANSDERM SCH; +Lidocaine Patch REMOVE* 1 NOTE MISC PATCH OFF SCH; -NS 0.9% 1000 ML* 1,000 ML IV ONE
--- NOTE | 2018-04-06 10:34 | RAD ---
INDICATION: Fall. Breast pain COMPARISON: None TECHNIQUE: AP seated and lateral views were obtained. FINDINGS: Bones/Soft Tissues: There are no acute bony findings. Cardiomediastinal: The cardiomediastinal silhouette is normal. Lungs: There are mild diffuse interstitial changes. There is mild bibasilar hypoventilation. There are no focal consolidative changes Pleura: There are no pleural effusions. Other: None IMPRESSION: MILD BIBASILAR HYPOVENTILATION. NO ACTIVE DISEASE.
--- NOTE | 2018-04-06 12:06 | RAD ---
Indication: Focal pain over the LEFT anterior ribs under the breast post fall. Chest radiograph of the same date. Comparison: Chest radiograph of the same date. Technique: Supine 4 view LEFT rib series. REPORT AND IMPRESSION: #. Suggestion of a subtle nondisplaced fracture at the lateral segment of the LEFT sixth rib. #. No additional fractures evident. #. No gross pleural effusion or pneumothorax evident within limits of supine technique. If there is clinical concern for pneumothorax consider an upright or RIGHT lateral decubitus view for further assessment. #. Cardiomegaly. Diffuse prominence of interstitial markings. Unremarkable central pulmonary vasculature. Mild interstitial pulmonary edema is not excluded.
[2018-04-06 12:10] VITALS: BP 164/78
--- NOTE | 2018-04-06 12:54 | ED ---
HPI Chest Pain - HPI Summary HPI Summary: Dementia pt here from [facility] w/ LT chest pain under breast s/p fall. Staff is present w/ pt and does not offer much detail as she was not present for event and does not appear to have been debriefed other than pt's CC. Believes this was a mechanical fall as she is prone to poor balance (daughter later confirmed). Also believes there was no head injury as a result of the fall. That being said, she reports pt is not complaining of additional sx or presenting w/ them such as SOB, fatigue, wheezing, difficulty breathing or swallowing or acting unlike herself (daughter also later confirmed). She has focal tenderness over the Lt anterior chest wall just beneath her breast but no skin changes reported. She is also moving her Lt arm well however appears limited w/ some movements/actions d/t pain. - History of Current Complaint Chief Complaint: EDChestPainROMI Time Seen by Provider: 04/06/18 09:39 Hx Obtained From: Patient, Family/[employer] - daughter arrived in the middle of pt's w/u Pain Intensity: 5 - Additional Pertinent History Primary Care Physician: NIYAH - Allergy/Home Medications Allergies/Adverse Reactions: Allergies Allergy/AdvReac Type Severity Reaction Status Date / Time Penicillins Allergy Unknown Verified 02/25/18 18:08 Reaction Details Home Medications: Home Medications Cholecalciferol (Vitamin D3) [Vitamin D3] 50,000 unit PO SEE INSTRUCTIONS [History Confirmed 04/06/18] Donepezil HCl [Aricept] 5 mg PO DAILY 04/06/18 [History Confirmed 04/06/18] PMH/Surg Hx/FS Hx/Imm Hx Previously Healthy: No - significant dementia Endocrine/Hematology History: Reports: Hx Diabetes - diet controlled Cardiovascular History: Reports: Hx Hypercholesterolemia, Hx Hypertension Comment Only: Other Cardiovascular Problems/Disorders - 2 cardiac stents in 2006 Respiratory History: Reports: Hx Pneumonia - 43 yrs ago and 2015, Hx Sleep Apnea - 50 yrs ago, noncompliant GI History: Comment Only: Other GI Disorders - some urgency, loose stools History: Denies: Hx Renal Disease Musculoskeletal History: Reports: Hx Arthritis, Hx Back Problems Denies: Hx Osteoporosis Sensory History: Reports: Hx Contacts or Glasses Denies: Hx Hearing Aid Opthamlomology History: Reports: Hx Contacts or Glasses Neurological History: Reports: Hx Dementia, Hx Seizures - 6mo to 10mo ago Psychiatric History: Reports: Other Psychiatric Issues/Disorders - dementia - Surgical History Surgery Procedure, Year, and Place: lumbar spine surgery. R hip surgery - Immunization History Date of Tetanus Vaccine: Unk Date of Influenza Vaccine: Unk Infectious Disease History: No Infectious Disease History: Denies: History Other Infectious Disease, Traveled Outside the [place] in Last 30 Days - Family History Known Family History: Positive: Hypertension, Diabetes - Social History Occupation: Retired Lives: At [facility] [employer] Alcohol Use: None Hx Substance Use: No Substance Use Type: Reports: None Hx Tobacco Use: Yes - not currently Smoking Status (MU): Former Smoker Review of Systems - ROS Summary Review of Systems Summary: Level 5 caveat: significant dementia Constitutional: Negative Negative: Fatigue Negative: Drainage, Erythema Negative: Epistaxis, Nasal Discharge Respiratory: Negative Negative: Shortness Of Breath, Cough Gastrointestinal: Negative Negative: Vomiting, Diarrhea Genitourinary: Negative Positive: Arthralgia, Myalgia Negative: Rash, Bruising Neurological: Negative Psychological: Normal All Other Systems Reviewed And Are Negative: Yes Physical Exam Triage Information Reviewed: Yes Vital Signs On Initial Exam: Initial Vitals Temp Pulse Resp BP Pulse Ox 97.7 F 76 16 165/77 95 04/06/18 09:36 04/06/18 09:36 04/06/18 09:36 04/06/18 09:36 04/06/18 09:36 Vital Signs Reviewed: Yes Appearance: Positive: Well-Appearing, No Pain Distress, Obese Skin: Positive: Warm, Skin Color Reflects Adequate Perfusion, Dry - no erythema , no ecchymosis over affected area Head/Face: Positive: Normal Head/Face Inspection - atraumatic - no step off, no battlesign, no racoon eyes, no crepitus, NTTP Eyes: Positive: Normal, EOMI, REAL - no photophobia, Conjunctiva Clear ENT: Positive: Normal ENT inspection, Hearing grossly normal, Pharynx normal - atraumatic, TMs normal - no hemotympanum. Negative: Nasal drainage Dental: Negative: Dental Fracture @ Neck: Positive: Supple, Nontender - FROM w/o restriction or apparent pain Respiratory/Lung Sounds: Positive: Clear to Auscultation, Breath Sounds Present. Negative: Decreased Breath Sounds, Stridor, Tracheal Deviation Cardiovascular: Positive: Normal, RRR, Pulses are Symmetrical in both Upper and Lower Extremities. Negative: Leg Edema Left, Leg Edema Right Abdomen Description: Positive: Nontender, Soft Musculoskeletal: Positive: Strength/ROM Intact, Limited @ - Lt UE restricted w/ end range of flexion Neurological: Positive: Sensory/Motor Intact - pt appears to be perceiving my touch and is moving spontaneously troughout the PE w/o hesitation, rigidity, cogwheeling, tremor or weakness, CN Intact II-III. Negative: Alert, Oriented to Person Place, Time - pt is alert to person but not place and time (staff and daughter report this is baseline) Psychiatric: Positive: Normal - pleasant, cooperative for the most part, in good spirits Diagnostics - Vital Signs Vital Signs Temp Pulse Resp BP Pulse Ox 04/06/18 12:10 164/78 04/06/18 12:06 85 91 04/06/18 12:03 83 147/76 93 04/06/18 11:10 77 21 152/77 90 04/06/18 11:00 84 24 90 04/06/18 10:39 84 27 136/55 94 04/06/18 10:38 83 23 157/68 93 04/06/18 10:00 20 04/06/18 09:39 82 19 165/77 95 04/06/18 09:36 97.7 F 76 16 165/77 95 - Laboratory Lab Statement: Any lab studies that have been ordered have been reviewed, and results considered in the medical decision making process. Chest Pain Course/Dx - Course Course Of Treatment: With staff and daughter present, pt was evaluated for her Lt chest wall pain s/p which sounds like the result of a mechanical fall. Upon XR, she has a fx of her Lt 6th rib in the area of her focal tenderness. W/o change in any other systems per staff and daughter and an unremarkable PE otherwise, further evaluation was not completed. Discussed w/ staff and daughter who agree w/ plan. - Diagnoses Provider Diagnoses: Fracture of one rib, left side, initial encounter for closed fracture Discharge - Sign-Out/Discharge Documenting (check all that apply): Patient Departure - Discharge Plan Condition: Stable Disposition: HOME Prescriptions: Lidocaine PATCH 5%* [Lidoderm 5% Patch*] 1 patch TRANSDERM DAILY PRN #30 patch PRN Reason: Pain Patient Education Materials: How to Use an Incentive Spirometer (ED), Rib Fracture (ED) Referrals: Rosina Keating MD [Primary Care Provider] - Additional Instructions: Apply ice, lidoderm pain patch as needed for pain Use incentive spirometer to prevent pneumonia Follow-up with PCP Tuesday - call today to schedule an appointment. *If you develop shortness of breath, fever, chills, difficulty breathing or swallowing, return to the ED - Billing Disposition and Condition Condition: STABLE Disposition: Home
== END | disposition home or self-care (01) ==
LOC: ED 09:31
DX: R07.9 Chest pain, unspecified (principal); F03.90 Unspecified dementia, unspecified severity, without behavioral disturbance, psychotic disturbance, mood disturbance, and anxiety; W19.XXXA Unspecified fall, initial encounter; Y92.9 Unspecified place or not applicable; E11.9 Type 2 diabetes mellitus without complications; E78.00 Pure hypercholesterolemia, unspecified; I10 Essential (primary) hypertension; Z88.0 Allergy status to penicillin; Z87.891 Personal history of nicotine dependence
CPT/HCPCS: 71046; 99283; A9270-GY

== ENCOUNTER 2018-06-07 14:47 | Emergency (ER) | payer MEDICARE ==
--- OUTSIDE RECORDS SUMMARY | 2018-06-07 15:27 | XMS REPORT | Continuity of Care Document ---
:1945 External Reference #:[id number] Author Name Shanta Madera O.D. Address [address] [place] [address] Care Team Providers Name Role Phone Rosina Keating M.D. Primary Care Physician Unavailable Payers Type Date Identification Numbers Payment Provider Subscriber Policy Number: [id number] [employer] Marychuy Shanta Mcnair PayID: [id number] [address] [address] [place] [address] Advance Directives Description No Information Available Problems Date Description Provider Status Onset: Type 2 diabetes mellitus Active Onset: Essential hypertension Active Onset: Hypercholesterolemia Active Onset: Asthma Active Onset: Dementia Active Onset: Mild depression Active Onset: 05/26/2018 Herpes zoster without complication Shanta Madera O.D. Active Family History Date Family Member(s) Problem(s) Comments Father No Current Problems Mother No Current Problems Social History Type Date Description Comments Sex Unknown Marital Status Single Work Status Retired ETOH Use Denies alcohol use Tobacco Use Start: Unknown End: Patient is a former smoker quit: 1973 Unknown Recreational Drug Use Denies Drug Use Smoking Status Reviewed: 06/06/18 Patient is a former smoker quit: 1973 Allergies, Adverse Reactions, Alerts Date Description Reaction Status Severity Comments 05/26/2018 Penicillin Active 05/26/2018 NKDA Inactive Medications Medication Date Status Form Strength Qnty SIG Indications Ordering Provider Amlodipine / Active Tablets 10mg Unknown Besylate 0000 Aspirin Adult / Active Tablets DR 81mg Unknown Low Dose 0000 Citalopram / Active Tablets 10mg Unknown Hydrobromide 0000 Donepezil HCL / Active Tablets 5mg Unknown 0000 Furosemide / Active Solution 8mg/ml Unknown 0000 Glipizide / Active Tablets 10mg Unknown 0000 Losartan / Active Tablets 25mg Unknown Potassium 0000 Melatonin / Active Capsules 1mg Unknown 0000 Paxil / Active Tablets 10mg Unknown 0000 Potassium / Active Tablets 75mg Unknown 0000 Proair HFA / Active Aerosol 108(90Base Unknown 0000 ) mcg/Act Vitamin D3 / Active Capsules 5000Unit Unknown Vitamin E / Active Capsules 100Unit Unknown 0000 Fibercon / Active Tablets 625mg Unknown Florastor / Active Capsules 250mg Unknown Acetaminophen / Active Crystals 60Mesh Unknown Gabapentin / Active Capsules 100mg Unknown 0000 Ibuprofen / Active Capsules 200mg 2 capsules Unknown 0000 3 times daily as needed Guaifenesin / Active Liquid 100mg/5ML as needed Unknown Imodium A-D / Active Capsules 2mg Unknown 0000 Immunizations Description No Information Available Vital Signs Description No Information Available Results Description No Information Available Procedures Date Code Description Status 05/26/2018 31723 New Patient Comprehensive Exam Completed Encounters Description No Information Available Plan of Treatment 06/06/2018 - Shanta Madera O.D.B02.9 Zoster without complicationsComments: Smoking can increase the risk of developing or worsening any eye related disease , as well as affect your overall health. If you are a smoker, we strongly recommend that you quit.If you are not a smoker, we strongly recommend that you do not start. I do not see any signs of the virus in your eyes. Ifyour symptoms increase, please call the office to be seenFollow up:as needed
[2018-06-07 15:57] LABS: ABS Basophils 0.1 10^3/ul (0-0.2); ABS Eosinophils 0.1 10^3/ul (0-0.6); ABS Lymphocytes 2.2 10^3/ul (1.0-4.8); ABS Monocytes 0.7 10^3/ul (0-0.8); ABS Neutrophils 4.3 10^3/ul (1.5-7.7); ABS Nucleated RBC 0 10^3/ul; Eosinophil % 1.1 % (0-6); Hematocrit 41 % (35-47); Hemoglobin 14.1 g/dl (12.0-16.0); Lymphocyte % 29.6 % (25-47); Mean Corpuscular HGB Conc 34 g/dl (31-36); Mean Corpuscular Hemoglobin 31 pg (27-31); Mean Corpuscular Volume 91 fL (80-97); Mean Platelet Volume 9.6 um3 (7.4-10.4); Nucleated Red Blood Cells % 0.1; Platelet Count 251 10^3/ul (150-450); Red Blood Count 4.53 10^6/ul (4.00-5.40); Red Cell Distribution Width 14 % (10.5-15); White Blood Count 7.3 10^3/ul (3.5-10.8)
[2018-06-07] MEDS ORDERED: LORazepam TAB(*) 1 MG PO ONE (16:28)
--- NOTE | 2018-06-07 16:29 | RAD ---
Indication: Altered mental status since fall one week ago. Dementia. Comparison: April 06, 2018 Technique: Upright AP 1609 hours Report: Leftward rotation noted. Elevated lung volumes and both diffuse mild prominence of the interstitial markings and patchy rarefaction of the mid to upper lung zone interstitial markings. Unchanged mild elevation of the RIGHT hemidiaphragm. No compelling alveolar infiltrate to raise concern for pneumonia. Negative for pleural effusion or pneumothorax. Cardiomegaly without change. No gross abnormality of the central pulmonary vasculature. IMPRESSION: #. Stigmata of obstructive lung disease. #. Cardiomegaly. #. No acute pulmonary or cardiac process evident.
[2018-06-07 16:30] LABS: EGFR Non-African American 92.4 (>60)
[2018-06-07] MEDS ORDERED: LORazepam TAB(*) 1 MG ONE (16:31)
--- NOTE | 2018-06-07 17:08 | ED ---
Altered Mental Status - HPI Summary HPI Summary: Pt. is a 72 y.o female who presents emergency department for increased confusion. Patient resides at [facility] has a history of dementia. Patient apparently had an unwitnessed fall about a week ago and sustained a contusion to her head. Patient was examined and the ER at that time and testing was negative. Pt. was sent back into the ER today by staff for increased confusion. No report of fever, cough, abd. pain, V/D. Symptoms are moderate in severity. No current modifying factors. - History Of Current Complaint Chief Complaint: EDAltMentalStatus Stated Complaint: FALL A WEEK AGO NOW NEEDS CT Time Seen by Provider: 06/07/18 15:29 Hx Obtained From: Family/Cert Pharmacy Tech - Allergies/Home Medications Allergies/Adverse Reactions: Allergies Allergy/AdvReac Type Severity Reaction Status Date / Time Penicillins Allergy Unknown Verified 05/31/18 08:55 Reaction Details Home Medications: Home Medications Calcium Polycarbophil TAB* [Fibercon TAB*] 625 mg PO BID PRN 06/07/18 [History Confirmed 06/07/18] Cholecalciferol TAB* [Vitamin D TAB*] 50,000 unit PO MONTHLY 06/07/18 [History Confirmed 06/07/18] Donepezil TAB* [Aricept 5 MG TAB*] 5 mg PO DAILY 06/07/18 [History Confirmed ] Ibuprofen TAB* [Motrin TAB* 400 MG] 400 mg PO Q12HR PRN 06/07/18 [History Confirmed 06/07/18] Melatonin 10 mg PO BEDTIME PRN 06/07/18 [History Confirmed 06/07/18] Potassium Chloride 20 meq PO BID 06/07/18 [History Confirmed 06/07/18] Saccharomyces Boulardii [Probiotic] 250 mg PO BID 06/07/18 [History Confirmed ] Triamcinolone 0.025% CM(NF) [Kenalog Cream 0.025%*] 1 applic TOPICAL BID PRN [History Confirmed 06/07/18] Vitamin E CAP* 200 unit PO DAILY 06/07/18 [History Confirmed 06/07/18] amLODIPine TAB* [Norvasc 5 mg TAB*] 10 mg PO QAM 06/07/18 [History Confirmed ] glipiZIDE TAB* [Glucotrol TAB*] 5 mg PO DAILY 06/07/18 [History Confirmed ] glipiZIDE TAB* [Glucotrol TAB*] 10 mg PO DAILY 06/07/18 [History Confirmed 06/07] PMH/Surg Hx/FS Hx/Imm Hx Previously Healthy: Yes Endocrine/Hematology History: Reports: Hx Diabetes - diet controlled Cardiovascular History: Reports: Hx Hypercholesterolemia, Hx Hypertension Comment Only: Other Cardiovascular Problems/Disorders - 2 cardiac stents in 2006 Respiratory History: Reports: Hx Pneumonia - 43 yrs ago and 2015, Hx Sleep Apnea - 50 yrs ago, noncompliant GI History: Comment Only: Other GI Disorders - some urgency, loose stools History: Denies: Hx Renal Disease Musculoskeletal History: Reports: Hx Arthritis, Hx Back Problems Denies: Hx Osteoporosis Sensory History: Reports: Hx Contacts or Glasses Denies: Hx Hearing Aid Opthamlomology History: Reports: Hx Contacts or Glasses Neurological History: Reports: Hx Dementia, Hx Seizures - 6mo to 10mo ago Psychiatric History: Reports: Other Psychiatric Issues/Disorders - dementia - Surgical History Surgery Procedure, Year, and Place: lumbar spine surgery. R hip surgery - Immunization History Date of Tetanus Vaccine: Unk Date of Influenza Vaccine: Unk Infectious Disease History: No Infectious Disease History: Denies: History Other Infectious Disease, Traveled Outside the [place] in Last 30 Days - Family History Known Family History: Positive: Hypertension, Diabetes - Social History Occupation: Retired Lives: At [facility] Alcohol Use: None Substance Use Type: Reports: None Smoking Status (MU): Former Smoker Review of Systems Constitutional: Negative Negative: Fever, Chills Eyes: Negative ENT: Negative Cardiovascular: Negative Negative: Chest Pain Respiratory: Negative Negative: Shortness Of Breath Gastrointestinal: Negative Negative: Abdominal Pain, Vomiting, Diarrhea Genitourinary: Negative Musculoskeletal: Negative Skin: Negative Neurological: Negative All Other Systems Reviewed And Are Negative: Yes Physical Exam Triage Information Reviewed: Yes Vital Signs On Initial Exam: Initial Vitals Temp Pulse Resp BP Pulse Ox 97.4 F 86 15 148/80 94 06/07/18 14:49 06/07/18 14:49 06/07/18 14:49 06/07/18 14:49 06/07/18 14:49 Vital Signs Reviewed: Yes Appearance: Positive: Well-Appearing - Pt. sitting up in bed in NAD. Pleasantly confused. Skin: Positive: Warm, Dry Head/Face: Positive: Normal Head/Face Inspection Eyes: Positive: Normal, EOMI, REAL Neck: Positive: Supple, Nontender. Negative: Nuchal Rigidity Respiratory/Lung Sounds: Positive: Clear to Auscultation, Breath Sounds Present Cardiovascular: Positive: Normal, RRR Abdomen Description: Positive: Nontender, Soft, Other: - +1 bilateral pitting edema. Musculoskeletal: Positive: Normal, Strength/ROM Intact Neurological: Positive: Normal, CN Intact II-III Psychiatric: Positive: Affect/Mood Appropriate - Shayla Coma Scale Best Eye Response: 4 - Spontaneous Best Motor Response: 6 - Obeys Commands Best Verbal Response: 4 - Confused Coma Scale Total: 14 Diagnostics - Vital Signs Vital Signs Temp Pulse Resp BP Pulse Ox 06/07/18 16:34 18 06/07/18 16:00 82 91 06/07/18 15:57 77 163/80 92 06/07/18 15:00 76 90 06/07/18 14:59 81 95 06/07/18 14:57 77 148/80 95 06/07/18 14:49 97.4 F 86 15 148/80 94 - Laboratory Lab Results: Lab Results 06/07/18 06/07/18 Range/Units 15:50 15:50 WBC 7.3 (3.5-10.8) 10^3/ul RBC 4.53 (4.00-5.40) 10^6/ul Hgb 14.1 (12.0-16.0) g/dl Hct 41 (35-47) % MCV 91 (80-97) fL MCH 31 (27-31) pg MCHC 34 (31-36) g/dl RDW 14 (10.5-15) % Plt Count 251 (150-450) 10^3/ul MPV 9.6 (7.4-10.4) um3 Neut % (Auto) 58.9 (38-83) % Lymph % (Auto) 29.6 (25-47) % Barber % (Auto) 9.3 H (0-7) % Eos % (Auto) 1.1 (0-6) % Baso % (Auto) 1.1 (0-2) % Absolute Neuts (auto) 4.3 (1.5-7.7) 10^3/ul Absolute Lymphs (auto) 2.2 (1.0-4.8) 10^3/ul Absolute Monos (auto) 0.7 (0-0.8) 10^3/ul Absolute Eos (auto) 0.1 (0-0.6) 10^3/ul Absolute Basos (auto) 0.1 (0-0.2) 10^3/ul Absolute Nucleated RBC 0 10^3/ul Nucleated RBC % 0.1 Sodium 138 (135-145) mmol/L Potassium 3.8 (3.5-5.0) mmol/L Chloride 103 (101-111) mmol/L Carbon Dioxide 25 (22-32) mmol/L Anion Gap 10 (2-11) mmol/L BUN 13 (6-24) mg/dL Creatinine 0.63 (0.51-0.95) mg/dL Est GFR ( Amer) 111.8 (>60) Est GFR (Non-Af Amer) 92.4 (>60) BUN/Creatinine Ratio 20.6 H (8-20) Glucose 219 H (70-100) mg/dL Calcium 9.5 (8.6-10.3) mg/dL Magnesium 2.1 (1.9-2.7) mg/dL Total Bilirubin 0.80 (0.2-1.0) mg/dL AST 29 (13-39) U/L ALT 35 (7-52) U/L Alkaline Phosphatase 88 (34-104) U/L Total Protein 7.0 (6.4-8.9) g/dL Albumin 3.9 (3.2-5.2) g/dL Globulin 3.1 (2-4) g/dL Albumin/Globulin Ratio 1.3 (1-3) Result Diagrams: 06/07/18 15:50 06/07/18 15:50 Lab Statement: Any lab studies that have been ordered have been reviewed, and results considered in the medical decision making process. Altered Mental Statu Course/Dx - Course Course Of Treatment: Patient brought to the ER for evaluation of increased confusion. Dementia at baseline. Patient is pleasantly confused but is not oriented to time or place. Patient speaking of her family and her parents and states she currently lives in [place]. She offers no complaints. Her exam is unremarkable. Basic labs and head CT were ordered. technical manager chemical plant attempted to obtain CT but patient kept talking and moving around for CT scan. Patient is reportedly to the ER and continued to move around and tried to get out of bed- will give 1mg PO ativan for anxiety. Labs are unremarkable. CXR and CT scan are negative for acute findings, reading per radiology. Pt.'s daughter is now present. Results discussed. Still need to obtain urine. Will plan on dc back to alf. Pt.'s daughter agrees with plan. U/A shows trace leukocytes and epi cells, will send for culture. On re-exam pt. is dressed, sitting in wheelchair at door wanting to go home. DC back to nursing. To f.u with PCP in 1- 2 days. To return to ER if sxs change or worsen. - Diagnoses Provider Diagnoses: Acute on chronic alteration in mental status Discharge - Sign-Out/Discharge Documenting (check all that apply): Patient Departure - Discharge Plan Condition: Good Disposition: HOME Patient Education Materials: Altered Mental Status (ED) Referrals: Rosina Keating MD [Primary Care Provider] - Additional Instructions: Schedule a follow up appointment with PCP in 2-3 days Return to ER if symptoms change or worsen - Billing Disposition and Condition Condition: GOOD Disposition: Home
--- NOTE | 2018-06-07 17:51 | RAD ---
Indication: Fall. Dementia. Altered mental status since fall. Comparison: May 31, 2018 CT Technique: Noncontrast CT vertex of skull through foramen magnum. Report: Advanced involutional change with prominent cerebral sulci, cerebellar fissures, and proportional ventricular enlargement. Decreased density in the periventricular and subcortical white matter while non-specific is most likely due to chronic microangiopathy. Negative for bowling matter white matter obscuration, intra or extra-axial hemorrhage, or mass effect. No suspicious abnormality at the orbits. Negative for calvarial or skull base fracture. Negative for scalp hematoma. IMPRESSION: #. No acute intracranial process or traumatic injury evident. #. Advanced involutional change.
[2018-06-07 18:41] LABS: Urine Appearance Clear; Urine Blood Negative (Negative); Urine Color Straw; Urine Ketones Negative (Negative); Urine Protein Negative (Negative); Urine Red Blood Cell Absent (Absent); Urine Specific Gravity 1.005 (1.010-1.030); Urine Urobilinogen Negative (Negative); Urine White Blood Cell Trace(0-5/hpf) (Absent)
[2018-06-07 19:02] VITALS: BP 00/00
== END 2018-06-07 19:01 | disposition home or self-care (01) ==
LOC: ED 14:47
DX: R41.82 Altered mental status, unspecified (principal); Z87.891 Personal history of nicotine dependence; E11.9 Type 2 diabetes mellitus without complications; E78.00 Pure hypercholesterolemia, unspecified; I10 Essential (primary) hypertension; F41.9 Anxiety disorder, unspecified
CPT/HCPCS: 36415; 70450; 71045; 80053; 81003; 81015; 83735; 85025; 87086; 93005; 99282; A9270-GY

== ENCOUNTER 2019-08-14 13:47 | Emergency (ER) | payer MEDICARE ==
[2019-08-14 14:30] VITALS: BP 149/68
--- NOTE | 2019-08-14 14:39 | UC ---
Respiratory Complaint HPI - HPI Summary HPI Summary: 73 year old female living in a [facility] with dementia, unknown type, presents with cough, non-productive, fatigue. Patient presents with daughter. Sarah states mom is very active and does not have her usual "spunk" no fever, but on chronic NSAIDs due to arthritis. + cough at least since 10. Patient is poor historian, not A&O to place. - History of Current Complaint Chief Complaint: UCGeneralIllness Stated Complaint: COUGH Time Seen by Provider: 08/14/19 14:37 Hx Obtained From: Patient Hx From Patient Unobtainable Due To: Dementia ?: No Onset/Duration: Sudden Onset, Lasting Days - since 1 at least Timing: Constant Severity Currently: None Pain Intensity: 0 Pain Scale Used: 0-10 Numeric Character: Cough: Nonproductive Aggravating Factors: Other - unknown Associated Signs And Symptoms: Negative: Fever, Chills, Pleuritic Chest Pain, Wheezing, Hemoptysis, Dizziness, Calf Pain, Calf Swelling, Nasal Congestion, Hoarseness - Allergies/Home Medications Allergies/Adverse Reactions: Allergies Allergy/AdvReac Type Severity Reaction Status Date / Time Penicillins Allergy Unknown Verified 08/14/19 14:22 Reaction Details Home Medications: Home Medications Amiodarone HCl 200 mg PO DAILY 08/14/19 [History Confirmed 08/14/19] Omeprazole 20 mg PO DAILY 08/14/19 [History Confirmed 08/14/19] Valsartan TAB* [Diovan TAB*] 160 mg PO DAILY 08/14/19 [History Confirmed ] PMH/Surg Hx/FS Hx/Imm Hx - Additional Past Medical History Additional PMH: dementia Previously Healthy: Yes Cardiovascular History: Cardiac Disease - Surgical History Surgical History: Yes Surgery Procedure, Year, and Place: lumbar spine. bilateral hip surgery. cardiac stents x2, 2006 - Family History Known Family History: Positive: Hypertension, Diabetes - Social History [facility] Alcohol Use: None Substance Use Type: None Smoking Status (MU): Former Smoker - Immunization History Most Recent Influenza Vaccination: 2017 Most Recent Pneumonia Vaccination: in past Review of Systems All Other Systems Reviewed And Are Negative: Yes Constitutional: Negative: Fever, Chills, Fatigue Respiratory: Positive: Cough Neurological: Positive: Negative Is Patient Immunocompromised?: No Physical Exam Triage Information Reviewed: Yes Appearance: Well-Appearing, No Pain Distress, Well-Nourished Vital Signs: Initial Vital Signs Temp 98 F 08/14/19 14:23 Pulse 69 08/14/19 14:23 Resp 18 08/14/19 14:23 BP 149/68 08/14/19 14:23 Pulse Ox 96 08/14/19 14:23 Vital Signs Reviewed: Yes Eyes: Positive: Conjunctiva Clear ENT: Positive: Hearing grossly normal, TMs normal, Uvula midline. Negative: Nasal congestion, TM bulging, TM dull, TM red, Tonsillar swelling, Tonsillar exudate, Sinus tenderness Neck: Positive: Supple, Nontender, No Lymphadenopathy. Negative: Nuchal Rigidity, Enlarged Nodes @ Respiratory: Positive: Chest non-tender, Lungs clear, Normal breath sounds, No respiratory distress, No accessory muscle use, Other: - difficult to asses as patient continues to talk during exam and cannot follow verbal commands.. Negative: Respiratory distress Cardiovascular: Positive: RRR, Murmur:Sys:Grade _?_/ - 3 Neurological Exam: Normal Respiratory Course/Dx - Course Course Of Treatment: X-ray- + for R middle lobe infiltrates- ABX started due to poor history and prison patient. Daughter wishes to be as conservative as possible. - Antibiotics as directed - doxycycline 100mg twice daily x 5 days - Increase fluid intake - Over the counter medications as needed for symptoms, such as cough - FOllow up with primary physician within 1 week for repeat x-ray - Differential Dx/Diagnosis Differential Diagnosis/HQI/PQRI: Bronchitis, Pneumothorax, Sinusitis Provider Diagnosis: Pneumonia Discharge ED - Sign-Out/Discharge Documenting (check all that apply): Patient Departure All imaging exams completed and their final reports reviewed: No Studies - Discharge Plan Condition: Good Disposition: HOME Prescriptions: DOXYcycline CAP(*) [DOXYcycline 100MG CAP(*)] 100 mg PO BID #10 cap levoFLOXacin [Levofloxacin] 750 mg PO DAILY #5 tablet Patient Education Materials: Bacterial Pneumonia (ED) Referrals: Rosina Keating MD [Primary Care Provider] - Additional Instructions: - Antibiotics as directed - Increase fluid intake - Over the counter medications as needed for symptoms, such as cough - FOllow up with primary physician within 1 week for repeat x-ray - Billing Disposition and Condition Condition: GOOD Disposition: Home
== END 2019-08-14 15:50 | disposition home or self-care (01) ==
LOC: UCCORT 13:47
DX: J18.9 Pneumonia, unspecified organism (principal); Z87.891 Personal history of nicotine dependence; Z95.5 Presence of coronary angioplasty implant and graft; Z88.0 Allergy status to penicillin
CPT/HCPCS: 71046; 99212; G0463